=== PATIENT | female | born 1930 | race African-American/Black ===

== ENCOUNTER 2018-02-05 11:52 | Inpatient (IN) | payer MEDICARE, MEDICAID ==
--- NOTE | 2018-02-05 12:14 | ED Physician Chart ---
ED Chief Complaint/HPI - Patient Information Date Seen:: 02/05/18 Time Seen:: 12:00 Chief Complaint:: suprapubic lesion History of Present Illness:: Patient sent [place] [facility] facility for a suprapubic lesion which has been treated with Keflex for the last 1 week. It is uncertain when the lesion drained spontaneously. Historian:: Patient Review:: Nurse's Note Reviewed ED Review of Systems - Review of Systems General/Constitutional: No fever Skin: Skin lesions Head: No headache Eyes: No loss of vision ENT: No earache Neck: No neck pain Cardio Vascular: No chest pain, No palpitations Pulmonary: No SOB GI: No nausea, No vomiting, No diarrhea G/U: No dysuria Musculoskeletal: No bone or joint pain Endocrine: No polyuria, No polydipsia Psychiatric: Prior psych history Hematopoietic: No bruising Neurological: No syncope, No focal symptoms ED Past Medical History - Past Medical History Past Medical History: HTN, Dementia Family History: Other (not available) Social History: Care Facility Surgical History: other (not available) Psychiatricy History: Dementia Medication: Reviewed ED Physical Exam - Physical Examination General/Constitutional: Awake, Well-developed, well-nourished, Alert Head: Atraumatic Other Eyes comments:: Arcus senilis Skin: No rash Other Skin comments:: In the suprapubic area there is a 1 cm area of induration with a central 1 cm draining site ENMT: External ears, nose nl, Oropharynx nl Other ENMT comments:: Several teeth present lower more than upper Neck: No mass Respiratory: Nl effort/Exclusion, Clear to Auscultation Cardio Vascular: RRR GI: No tenderness/rebounding/guarding : No CVA tenderness Other Extremities comments:: 1 out of 4 pretibial pitting edema Neuro/Psych: No focal deficits ED Labs/Radiology/EKG Results - Lab Results Results: Laboratory Results - last 24 hr 02/05/18 02/05/18 02/05/18 12:25 12:25 12:25 WBC 5.9 RBC 4.24 Hgb 12.4 Hct 37.2 L MCV 87.8 MCH 29.2 MCHC Differential 33.3 RDW 13.4 Plt Count 318 MPV 7.1 Neutrophils % 59.6 Lymphocytes % 32.3 Monocytes % 5.6 Eosinophils % 2.3 Basophils % 0.2 PT 11.2 INR 1.08 PTT (Actin FS) 25.6 L Sodium 134 L Potassium 4.2 Chloride 102 Carbon Dioxide 23.5 Anion Gap 12.7 BUN 11 Creatinine 0.4 L Est GFR ( Amer) TNP Est GFR (Non-Af Amer) TNP BUN/Creatinine Ratio 27.5 Glucose 165 H Calcium 9.5 Troponin I 02/05/18 12:25 WBC RBC Hgb Hct MCV MCH MCHC Differential RDW Plt Count MPV Neutrophils % Lymphocytes % Monocytes % Eosinophils % Basophils % PT INR PTT (Actin FS) Sodium Potassium Chloride Carbon Dioxide Anion Gap BUN Creatinine Est GFR ( Amer) Est GFR (Non-Af Amer) BUN/Creatinine Ratio Glucose Calcium Troponin I < 0.01 L ED Assessment - Assessment General Assessment: Patient probably has an MRSA spontaneously partially drained suprapubic abscess ED Septic Shock - . Is Septic Shock (SBP<90, OR Lactate>4 mmol\L) present?: No ED Reassessment (Disposition) - Reassessment Reassessment Condition:: Unchanged - Diagnosis Diagnosis:: MRSA abscess; dementia - Patient Disposition Admitted to:: Med/Surg Spoke to:: Shekhar Sarkar Admitting Medical Physician:: Shekhar Sarkar Condition at Disposition:: Stable, Unchanged
[2018-02-05 12:39] LABS: % BASOPHILS 0.2 % (0.0-2.0); % EOSINOPHILS 2.3 % (0.0-5.0); % LYMPHOCYTES 32.3 % (20.0-50.0); % MONOCYTES 5.6 % (2.0-10.0); % NEUTROPHILS 59.6 % (40.0-80.0); EOSINOPHILE ABSOLUTE 0.1 Th/cmm (0.1-0.4); HEMATOCRIT 37.2 % (41.0-60); HEMOGLOBIN 12.4 gm/dL (12-16); LYMPHOCYTE ABSOLUTE 1.9 Th/cmm (1.5-3.0); MEAN CELL VOLUME 87.8 fl (81-100); MEAN CORPUSCULAR HEMOGLOBIN 29.2 pg (27.0-31.0); MEAN CORPUSCULAR HGB CONC 33.3 pg (28.0-36.0); MEAN PLATELET VOLUME 7.1 fl; MONOCYTE ABSOLUTE 0.3 Th/cmm (0.3-1.0); NEUTROPHILE ABSOLUTE 3.6 Th/cmm (1.8-8.0); PLATELET COUNT 318 Th/cmm (150-400); RED BLOOD COUNT 4.24 Mil/cmm (3.80-5.20); RED CELL DISTRIBUTION WIDTH 13.4 % (11.5-20.0); WHITE BLOOD COUNT 5.9 Th/cmm (4.8-10.8)
[2018-02-05 12:53] LABS: INR 1.08 (0.5-1.4); PROTHROMBIN TIME (TEST) 11.2 SECONDS (9.5-11.5)
[2018-02-05 12:56] LABS: ANION GAP 12.7 (7.0-16.0); BUN - UREA NITROGEN 11 mg/dL (7-25); CALCIUM SERUM 9.5 mg/dL (8.6-10.3); CARBON DIOXIDE 23.5 mEq/L (21.0-31.0); CHLORIDE 102 mEq/L (98-107); CREATININE - SERUM 0.4 mg/dL (0.6-1.2); GLUCOSE 165 mg/dL (70-105); POTASSIUM SERUM 4.2 mEq/L (3.5-5.1); SODIUM SERUM 134 mEq/L (136-145)
--- NOTE | 2018-02-05 16:11 | Consultation ---
Consult Note - Consult Note Service Date: 02/05/18 Referring Physician: Shekhar Sarkar Consult Note: PHYSICIAN Consultation Note: Date of Admission: 02/05/18 Purpose of Consultation: Chief Complaint: Patient CHATO WINCHESTER was admitted to [facility] with ABSCESS. History of Present Illness: 87 female with a past medical history of dementia hypertension sent from nursing facility for a draining wound in pubic area. On initial evaluation, her temperature was 98.5F and WBC count was 5900. She was found to have UTI and ID consult was called for further antibiotic management. Meanwhile, vancomycin and Zosyn were started. She has taken Keflex at nursing facility. Past Medical History: dementia hypertension. Allergies Allergy/AdvReac Type Severity Reaction Status Date / Time No Known Allergies Allergy Verified 02/05/18 12:18 Vital Signs Temp 97.9 F 02/05/18 12:44 Pulse 74 02/05/18 12:44 Resp 16 02/05/18 12:44 BP 124/70 02/05/18 12:44 Pulse Ox 98 02/05/18 12:44 Intake & Output 02/04/18 02/05/18 02/05/18 18:59 06:59 18:59 Weight (lbs) 70.307 kg Other: Weight Source Estimated Laboratory Results - last 24 hr 02/05/18 02/05/18 02/05/18 12:25 12:25 12:25 WBC 5.9 RBC 4.24 Hgb 12.4 Hct 37.2 L MCV 87.8 MCH 29.2 MCHC Differential 33.3 RDW 13.4 Plt Count 318 MPV 7.1 Neutrophils % 59.6 Lymphocytes % 32.3 Monocytes % 5.6 Eosinophils % 2.3 Basophils % 0.2 PT 11.2 INR 1.08 PTT (Actin FS) 25.6 L Sodium 134 L Potassium 4.2 Chloride 102 Carbon Dioxide 23.5 Anion Gap 12.7 BUN 11 Creatinine 0.4 L Est GFR ( Amer) TNP Est GFR (Non-Af Amer) TNP BUN/Creatinine Ratio 27.5 Glucose 165 H Calcium 9.5 Troponin I 02/05/18 12:25 WBC RBC Hgb Hct MCV MCH MCHC Differential RDW Plt Count MPV Neutrophils % Lymphocytes % Monocytes % Eosinophils % Basophils % PT INR PTT (Actin FS) Sodium Potassium Chloride Carbon Dioxide Anion Gap BUN Creatinine Est GFR ( Amer) Est GFR (Non-Af Amer) BUN/Creatinine Ratio Glucose Calcium Troponin I < 0.01 L Home Medication Medication Instructions Recorded Type Acetaminophen [Tylenol Extra 1,000 mg PO Q4HR PRN 02/05/18 History Strength] Acetaminophen [Tylenol] 650 mg PO Q4HR PRN 02/05/18 History Ascorbic Acid [Vitamin C] 500 mg PO DAILY 02/05/18 History Aspirin [Aspirin Chewable] 81 mg PO DAILY 02/05/18 History Bisacodyl [Dulcolax 10 Mg Supp] 10 mg RC PRN PRN 02/05/18 History Donepezil Hcl [Aricept] 10 mg PO DAILY 02/05/18 History Ferrous Sulfate 325 mg PO DAILY 02/05/18 History Fleet Enema 135 ml RC Q48H PRN 02/05/18 History Insulin Glargine,Hum.rec.anlog 15 unit SQ BID 02/05/18 History [Lantus Solostar] Levothyroxine Sodium 88 mcg PO DAILY 02/05/18 History Magnesium Hydroxide [Milk of 30 ml PO HS PRN 02/05/18 History Magnesia] Metformin HCl [Fortamet] 500 mg PO BID 02/05/18 History Neomycin/Bacitracin/Polymyxinb 1 appl TP DAILY 02/05/18 History [Triple Antibiotic Ointment] Review of Systems: A 12 point ROS was reviewed with the pertinent positive and negatives noted in the HPI. Social History Smoking Status Never smoker Physical Exam: General: Comfortable not in acute distress. HEENT: Head: Normocephalic, atraumatic. Oral cavity moist, pink tongue is is present icterus. Pupil PERRLA. Neck: Supple no JVD noted to be no use of accessory neck muscles Cardio: S1 and S2 within normal limits Respiratory: CTAP Abdominal: Soft, nontender nondistended bowel symptoms present. And pelvic area patient has small tiny wound draining serosanguineous fluid. Genital/Urinary: Deferred, as in abdomen Extremities: No cyanosis, no clubbing no edema. Neurological: Alert, awake and oriented 3. No focal deficit. Assessment: 1. Wound in pubic area. 2. Dementia. 3. Hypertension. Plan: Will change antibiotic to Rocephin. Wound care. Thank you, Dr. Sarkar for involving me taking care of this patient. Signed, Lagunas, Ford N., M.D. 02/05/[id number]
[2018-02-05 16:23] VITALS: BP 136/76
[2018-02-05] MEDS ORDERED: Fleet Enema 135 mL RC PRN (17:05)
[2018-02-05] MEDS ORDERED: Acetaminophen 500 MG TAB PO PRN (17:05)
[2018-02-05] MEDS ORDERED: Magnesium Hydroxide (MOM) 30 mL UDC PO PRN (17:05)
[2018-02-05] MEDS: D5-0.45NS 1,000 ML IV SCH (18:36)
[2018-02-06 05:48] LABS: % BASOPHILS 0.8 % (0.0-2.0); % EOSINOPHILS 3.1 % (0.0-5.0); % LYMPHOCYTES 28.4 % (20.0-50.0); % NEUTROPHILS 61.7 % (40.0-80.0); EOSINOPHILE ABSOLUTE 0.2 Th/cmm (0.1-0.4); HEMATOCRIT 35.9 % (41.0-60); LYMPHOCYTE ABSOLUTE 1.6 Th/cmm (1.5-3.0); MEAN CELL VOLUME 86.9 fl (81-100); MEAN CORPUSCULAR HGB CONC 33.3 pg (28.0-36.0); MEAN PLATELET VOLUME 7.7 fl; MONOCYTE ABSOLUTE 0.3 Th/cmm (0.3-1.0); NEUTROPHILE ABSOLUTE 3.4 Th/cmm (1.8-8.0); PLATELET COUNT 297 Th/cmm (150-400); RED BLOOD COUNT 4.13 Mil/cmm (3.80-5.20); RED CELL DISTRIBUTION WIDTH 13.2 % (11.5-20.0); WHITE BLOOD COUNT 5.5 Th/cmm (4.8-10.8)
[2018-02-06 06:07] LABS: ANION GAP 9.4 (7.0-16.0); BUN - UREA NITROGEN 9 mg/dL (7-25); CALCIUM SERUM 8.8 mg/dL (8.6-10.3); CARBON DIOXIDE 26.4 mEq/L (21.0-31.0); CHLORIDE 101 mEq/L (98-107); CHOLESTEROL 88 mg/dL (<200); CREATININE - SERUM 0.4 mg/dL (0.6-1.2); HDL -HIGH DENSITY LIPOPROTEIN 35 mg/dL (23-92); POTASSIUM SERUM 3.8 mEq/L (3.5-5.1); SODIUM SERUM 133 mEq/L (136-145); TRIGLYCERIDES 124 mg/dL (<150)
[2018-02-06 06:10] LABS: GLUCOSE 290 mg/dL (70-105)
[2018-02-06] MEDS: Insulin Detemir 100 units/mL 10mL Vial SUBQ SCH ×2 (08:41→17:14)
[2018-02-06] MEDS: Levothyroxine 0.088 Mg Tab PO SCH (08:42)
[2018-02-06] MEDS: Aspirin 81mg Chewable Tab PO SCH (08:42)
[2018-02-06] MEDS: Ferrous Sulfate 325 MG TAB PO SCH (08:42)
[2018-02-06] MEDS: D5-0.45NS 1,000 ML IV SCH (12:08)
[2018-02-06] MEDS ORDERED: INSULIN HUMAN REGULAR 100 UNITS/ML UNIT SUBQ ONE (13:08)
[2018-02-06] MEDS ORDERED: Triple Antibiotic Ointment 28gm tube TP SCH (16:00)
--- NOTE | 2018-02-06 16:44 | History & Physical ---
ADMIT DATE: 02/06/2018 CHIEF COMPLAINT: Suprapubic abscess. HISTORY OF PRESENT ILLNESS: This is an 87-year-old -[place] female who is a long term resident, admitted here to the med-surg unit due to suprapubic abscess. Apparently, the patient has been treated with Keflex and abscess has not resolved. The patient did not have any fevers at the long term. PAST MEDICAL HISTORY: Hypertension, dementia. FAMILY HISTORY: Noncontributory. SOCIAL HISTORY: The patient is a long term resident, requiring 24-hour nursing care. MEDICATIONS: Please see medication list. REVIEW OF SYSTEMS: Unable to obtain, patient is confused. PHYSICAL EXAMINATION: GENERAL: Elderly female, awake with confusion, no apparent distress. VITAL SIGNS: Temperature 97.4, heart rate 60, blood pressure 107/68, respiration 18, O2 98%. HEENT: Head; normocephalic, atraumatic. NECK: Supple. No mass. LUNGS: Clear bilaterally. ABDOMEN: Soft, nontender. LABORATORY DATA: WBC 5.5, H and H 12.0 and 35.9, platelets 297. Sodium 133, potassium 3.8, BUN 9, creatinine 0.4. ASSESSMENT: Suprapubic abscess, hypertension, dementia. PLAN: We will get Infectious Disease on the case for now, we will continue empiric IV antibiotics. We will follow up labs for tomorrow morning. We will continue to monitor this patient. [facility]# [id number]
[2018-02-06] MEDS: INSULIN ASPART SLIDING SCALE 100 UNITS/ML UNIT SUBQ SCH ×2 (17:15→21:11)
[2018-02-06 18:30] LABS: A1C % 8.2 % (4.0-6.0)
[2018-02-07 05:44] LABS: HEMATOCRIT 38.1 % (41.0-60); HEMOGLOBIN 12.2 gm/dL (12-16); MEAN CORPUSCULAR HEMOGLOBIN 28.6 pg (27.0-31.0); MEAN CORPUSCULAR HGB CONC 32.1 pg (28.0-36.0); MEAN PLATELET VOLUME 8.1 fl; PLATELET COUNT 248 Th/cmm (150-400); RED BLOOD COUNT 4.28 Mil/cmm (3.80-5.20); RED CELL DISTRIBUTION WIDTH 13.7 % (11.5-20.0)
[2018-02-07 06:07] LABS: ANION GAP 10.4 (7.0-16.0); BUN - UREA NITROGEN 8 mg/dL (7-25); CALCIUM SERUM 8.9 mg/dL (8.6-10.3); CARBON DIOXIDE 25.5 mEq/L (21.0-31.0); CHLORIDE 106 mEq/L (98-107); CREATININE - SERUM 0.5 mg/dL (0.6-1.2); POTASSIUM SERUM 4.9 mEq/L (3.5-5.1); SODIUM SERUM 137 mEq/L (136-145)
[2018-02-07 06:17] LABS: GLUCOSE 118 mg/dL (70-105)
[2018-02-07 06:22] LABS: WHITE BLOOD COUNT 8.8 Th/cmm (4.8-10.8)
[2018-02-07 06:32] LABS: BAND NEUTROPHILE 0 % (0-10); BASOPHIL 0 % (0-3); EOSINOPHIL 6 % (0-5); LYMPHOCYTE 32 % (20-50); MONOCYTE 1 % (2-10); NEUTROPHILS 61 % (40-80)
[2018-02-07] MEDS: INSULIN ASPART SLIDING SCALE 100 UNITS/ML UNIT SUBQ SCH ×4 (07:13→21:57)
[2018-02-07] MEDS: Levothyroxine 0.088 Mg Tab PO SCH (08:14)
[2018-02-07] MEDS: Aspirin 81mg Chewable Tab PO SCH (08:14)
[2018-02-07] MEDS: Insulin Detemir 100 units/mL 10mL Vial SUBQ SCH ×2 (08:14→16:58)
[2018-02-07] MEDS: Ferrous Sulfate 325 MG TAB PO SCH (08:14)
[2018-02-07] MEDS: D5-0.45NS 1,000 ML IV SCH (08:17)
--- NOTE | 2018-02-07 12:04 | General Progress Note ---
Subjective - Review of Systems Events since last encounter: patient awake c/o mild pain in abscess site tolerating antibiotics well Objective - Results Result Diagrams: 02/07/18 05:05 02/07/18 05:05 Recent Labs: Laboratory Last Values WBC 8.8 Th/cmm (4.8-10.8) D 02/07/18 05:05 RBC 4.28 Mil/cmm (3.80-5.20) 02/07/18 05:05 Hgb 12.2 gm/dL (12-16) 02/07/18 05:05 Hct 38.1 % (41.0-60) L 02/07/18 05:05 MCV 89.0 fl (81-100) 02/07/18 05:05 MCH 28.6 pg (27.0-31.0) 02/07/18 05:05 MCHC Differential 32.1 pg (28.0-36.0) 02/07/18 05:05 RDW 13.7 % (11.5-20.0) 02/07/18 05:05 Plt Count 248 Th/cmm (150-400) 02/07/18 05:05 MPV 8.1 fl 02/07/18 05:05 Add Manual Diff YES 02/07/18 05:05 Neutrophils % 61.7 % (40.0-80.0) 02/06/18 05:05 Band Neutrophils % 0 % (0-10) 02/07/18 05:05 Lymphocytes % 28.4 % (20.0-50.0) 02/06/18 05:05 Monocytes % 6.0 % (2.0-10.0) 02/06/18 05:05 Eosinophils % 3.1 % (0.0-5.0) 02/06/18 05:05 Basophils % 0.8 % (0.0-2.0) 02/06/18 05:05 Neutrophils (Manual) 61 % (40-80) 02/07/18 05:05 Lymphocytes 32 % (20-50) 02/07/18 05:05 Monocytes 1 % (2-10) L 02/07/18 05:05 Eosinophils 6 % (0-5) H 02/07/18 05:05 Basophils 0 % (0-3) 02/07/18 05:05 PT 11.2 SECONDS (9.5-11.5) 02/05/18 12:25 INR 1.08 (0.5-1.4) 02/05/18 12:25 PTT (Actin FS) 25.6 SECONDS (26.0-38.0) L 02/05/18 12:25 Sodium 137 mEq/L (136-145) 02/07/18 05:05 Potassium 4.9 mEq/L (3.5-5.1) 02/07/18 05:05 Chloride 106 mEq/L (98-107) 02/07/18 05:05 Carbon Dioxide 25.5 mEq/L (21.0-31.0) 02/07/18 05:05 Anion Gap 10.4 (7.0-16.0) 02/07/18 05:05 BUN 8 mg/dL (7-25) 02/07/18 05:05 Creatinine 0.5 mg/dL (0.6-1.2) L 02/07/18 05:05 Est GFR ( Amer) TNP 02/07/18 05:05 Est GFR (Non-Af Amer) TNP 02/07/18 05:05 BUN/Creatinine Ratio 16.0 02/07/18 05:05 Glucose 118 mg/dL (70-105) H D 02/07/18 05:05 POC Glucose 150 MG/DL (70 - 105) H 02/07/18 11:55 Hemoglobin A1c % 8.2 % (4.0-6.0) H 02/06/18 05:05 Calcium 8.9 mg/dL (8.6-10.3) 02/07/18 05:05 Troponin I < 0.01 ng/mL (0.01-0.05) L 02/05/18 12:25 Triglycerides 124 mg/dL (<150) 02/06/18 05:05 Cholesterol 88 mg/dL (<200) 02/06/18 05:05 LDL Cholesterol Direct 29 mg/dL (75-193) L 02/06/18 05:05 HDL Cholesterol 35 mg/dL (23-92) 02/06/18 05:05 Vancomycin Trough 7.9 ug/mL (5-10) 02/07/18 07:50 - Physical Exam Vitals and I&O: Vital Signs Temp 98.2 F 02/07/18 11:49 Pulse 60 02/07/18 11:49 Resp 18 02/07/18 11:49 BP 135/72 02/07/18 11:49 Pulse Ox 96 02/07/18 11:49 Intake & Output 02/06/18 02/07/18 02/07/18 18:59 06:59 18:59 Intake Total 1726.506 625 5500 Balance 1726.400 828 1632 Weight (lbs) 65.317 kg 65.317 kg Intake: Intake, IV Amount 1226.520 00 7412 D5-0.45NS 1,000 ml @ 50 576.307 1249 mls/hr IV .Q20H [facility] Rx#: [id number] Piperacillin Sodium/ 100 50 Tazobact 3.375 gm In Sodium Chloride 0.9% 50 ml @ 100 mls/hr IV Q6HR [facility] Rx#:[id number] Vancomycin HCl 1 gm In 250 Sodium Chloride 0.9% 250 ml @ 165 mls/hr IV Q24HR@ 0900 [facility] Rx#:[id number] Oral 500 400 Other: # Voids 3 2 # Bowel Movements 0 0 Stool Characteristics Soft Weight Source Bedscale Bedscale Active Medications: Current Medications Acetaminophen (Tylenol) 650 mg PO Q4HR PRN PRN Reason: MILD PAIN OR TEMP >101 Stop: 04/06/18 17:04 Acetaminophen (Tylenol Extra Strength) 1,000 mg PO Q4HR PRN PRN Reason: MODERATE PAIN Stop: 04/06/18 17:04 Ascorbic Acid (Vitamin C) 500 mg PO DAILY [facility] Stop: 04/07/18 08:59 Last Admin: 02/07/18 08:14 Dose: 500 mg Aspirin (Aspirin Chewable) 81 mg PO DAILY [facility] Stop: 04/07/18 08:59 Last Admin: 02/07/18 08:14 Dose: 81 mg Bisacodyl (Dulcolax 10 Mg Supp) 10 mg RC DAILY PRN PRN Reason: IF MOM INEFFECTIVE Stop: 04/06/18 17:04 Donepezil HCl (Aricept) 10 mg PO DAILY [facility] Stop: 04/07/18 08:59 Last Admin: 02/07/18 08:14 Dose: 10 mg Ferrous Sulfate (Iron) 325 mg PO DAILY [facility] Stop: 04/07/18 08:59 Last Admin: 02/07/18 08:14 Dose: 325 mg Dextrose/Sodium Chloride (D5-0.45ns) 1,000 mls @ 50 mls/hr IV .Q20H [facility] Stop: 04/06/18 16:14 Last Admin: 02/07/18 08:17 Dose: 50 mls/hr Piperacillin Sod/Tazobactam (Sod 3.375 gm/ Sodium Chloride) 50 mls @ 100 mls/ hr IV Q6HR [facility] Stop: 04/06/18 17:59 Last Admin: 02/07/18 05:20 Dose: 100 mls/hr Vancomycin HCl 1 gm/ Sodium (Chloride) 250 mls @ 165 mls/hr IV Q24HR@0900 [facility] Stop: 04/06/18 16:59 Last Admin: 02/07/18 09:30 Dose: 165 mls/hr Insulin Aspart (Novolog Insulin Sliding Scale) 0 units SUBQ ACHS [facility]; Protocol Stop: 04/07/18 16:29 Last Admin: 02/07/18 11:59 Dose: Not Given Insulin Detemir (Levemir Insulin) 15 units SUBQ BID [facility] Stop: 04/07/18 08:59 Last Admin: 02/07/18 08:14 Dose: 15 units Levothyroxine Sodium (Synthroid) 0.088 mg PO DAILY [facility] Stop: 04/07/18 08:59 Last Admin: 02/07/18 08:14 Dose: 0.088 mg Magnesium Hydroxide (Milk Of Magnesia) 30 ml PO HS PRN PRN Reason: Constipation Stop: 04/06/18 17:04 Metformin HCl (Glucophage) 500 mg PO BID [facility] Stop: 04/07/18 08:59 Last Admin: 02/07/18 08:14 Dose: 500 mg Miscellaneous (Vancomycin Iv Per Pharmacy) 1 ea MC PRN PRN PRN Reason: PROTOCOL Stop: 04/06/18 16:13 Neomycin/Polymyxin/Bacitracin (Triple Antibiotic Pkt) 1 pkt TP DAILY [facility] Stop: 04/07/18 11:59 Sodium Phosphate (Fleet Enema) 135 ml RC Q48H PRN PRN Reason: IF DULCOLAX INEFFECTIVE Stop: 04/06/18 17:04 Assessment/Plan - Problem List Patient Problems: All Active Problems FESTERING LESION TO GROIN (Acute)
--- NOTE | 2018-02-07 12:14 | Infectious Disease Prog Note ---
Infectious Disease Subjective - Review of Systems Service Date: 02/07/18 Subjective: There is no new change, no fever. Infectious Disease Objective - Results Result Diagrams: 02/07/18 05:05 02/07/18 05:05 Recent Labs: Laboratory Last Values WBC 8.8 Th/cmm (4.8-10.8) D 02/07/18 05:05 RBC 4.28 Mil/cmm (3.80-5.20) 02/07/18 05:05 Hgb 12.2 gm/dL (12-16) 02/07/18 05:05 Hct 38.1 % (41.0-60) L 02/07/18 05:05 MCV 89.0 fl (81-100) 02/07/18 05:05 MCH 28.6 pg (27.0-31.0) 02/07/18 05:05 MCHC Differential 32.1 pg (28.0-36.0) 02/07/18 05:05 RDW 13.7 % (11.5-20.0) 02/07/18 05:05 Plt Count 248 Th/cmm (150-400) 02/07/18 05:05 MPV 8.1 fl 02/07/18 05:05 Add Manual Diff YES 02/07/18 05:05 Neutrophils % 61.7 % (40.0-80.0) 02/06/18 05:05 Band Neutrophils % 0 % (0-10) 02/07/18 05:05 Lymphocytes % 28.4 % (20.0-50.0) 02/06/18 05:05 Monocytes % 6.0 % (2.0-10.0) 02/06/18 05:05 Eosinophils % 3.1 % (0.0-5.0) 02/06/18 05:05 Basophils % 0.8 % (0.0-2.0) 02/06/18 05:05 Neutrophils (Manual) 61 % (40-80) 02/07/18 05:05 Lymphocytes 32 % (20-50) 02/07/18 05:05 Monocytes 1 % (2-10) L 02/07/18 05:05 Eosinophils 6 % (0-5) H 02/07/18 05:05 Basophils 0 % (0-3) 02/07/18 05:05 PT 11.2 SECONDS (9.5-11.5) 02/05/18 12:25 INR 1.08 (0.5-1.4) 02/05/18 12:25 PTT (Actin FS) 25.6 SECONDS (26.0-38.0) L 02/05/18 12:25 Sodium 137 mEq/L (136-145) 02/07/18 05:05 Potassium 4.9 mEq/L (3.5-5.1) 02/07/18 05:05 Chloride 106 mEq/L (98-107) 02/07/18 05:05 Carbon Dioxide 25.5 mEq/L (21.0-31.0) 02/07/18 05:05 Anion Gap 10.4 (7.0-16.0) 02/07/18 05:05 BUN 8 mg/dL (7-25) 02/07/18 05:05 Creatinine 0.5 mg/dL (0.6-1.2) L 02/07/18 05:05 Est GFR ( Amer) TNP 02/07/18 05:05 Est GFR (Non-Af Amer) TNP 02/07/18 05:05 BUN/Creatinine Ratio 16.0 02/07/18 05:05 Glucose 118 mg/dL (70-105) H D 02/07/18 05:05 POC Glucose 150 MG/DL (70 - 105) H 02/07/18 11:55 Hemoglobin A1c % 8.2 % (4.0-6.0) H 02/06/18 05:05 Calcium 8.9 mg/dL (8.6-10.3) 02/07/18 05:05 Troponin I < 0.01 ng/mL (0.01-0.05) L 02/05/18 12:25 Triglycerides 124 mg/dL (<150) 02/06/18 05:05 Cholesterol 88 mg/dL (<200) 02/06/18 05:05 LDL Cholesterol Direct 29 mg/dL (75-193) L 02/06/18 05:05 HDL Cholesterol 35 mg/dL (23-92) 02/06/18 05:05 Vancomycin Trough 7.9 ug/mL (5-10) 02/07/18 07:50 - Physical Exam Vitals and I&O: Vital Signs Temp 98.2 F 02/07/18 11:49 Pulse 60 02/07/18 11:49 Resp 18 02/07/18 11:49 BP 135/72 02/07/18 11:49 Pulse Ox 96 02/07/18 11:49 Intake & Output 02/06/18 02/07/18 02/07/18 18:59 06:59 18:59 Intake Total 1726.120 091 5342 Balance 1726.935 258 1846 Weight (lbs) 65.317 kg 65.317 kg Intake: Intake, IV Amount 1226.263 959 9504 D5-0.45NS 1,000 ml @ 50 488.913 6075 mls/hr IV .Q20H [facility] Rx#: [id number] Piperacillin Sodium/ 100 100 Tazobact 3.375 gm In Sodium Chloride 0.9% 50 ml @ 100 mls/hr IV Q6HR [facility] Rx#:[id number] Vancomycin HCl 1 gm In 250 Sodium Chloride 0.9% 250 ml @ 165 mls/hr IV Q24HR@ 0900 [facility] Rx#:[id number] Oral 500 400 Other: # Voids 3 2 # Bowel Movements 0 0 Stool Characteristics Soft Weight Source Bedscale Bedscale Active Medications: Current Medications Acetaminophen (Tylenol) 650 mg PO Q4HR PRN PRN Reason: MILD PAIN OR TEMP >101 Stop: 04/06/18 17:04 Acetaminophen (Tylenol Extra Strength) 1,000 mg PO Q4HR PRN PRN Reason: MODERATE PAIN Stop: 04/06/18 17:04 Ascorbic Acid (Vitamin C) 500 mg PO DAILY [facility] Stop: 04/07/18 08:59 Last Admin: 02/07/18 08:14 Dose: 500 mg Aspirin (Aspirin Chewable) 81 mg PO DAILY [facility] Stop: 04/07/18 08:59 Last Admin: 02/07/18 08:14 Dose: 81 mg Bisacodyl (Dulcolax 10 Mg Supp) 10 mg RC DAILY PRN PRN Reason: IF MOM INEFFECTIVE Stop: 04/06/18 17:04 Donepezil HCl (Aricept) 10 mg PO DAILY [facility] Stop: 04/07/18 08:59 Last Admin: 02/07/18 08:14 Dose: 10 mg Ferrous Sulfate (Iron) 325 mg PO DAILY [facility] Stop: 04/07/18 08:59 Last Admin: 02/07/18 08:14 Dose: 325 mg Dextrose/Sodium Chloride (D5-0.45ns) 1,000 mls @ 50 mls/hr IV .Q20H [facility] Stop: 04/06/18 16:14 Last Admin: 02/07/18 08:17 Dose: 50 mls/hr Piperacillin Sod/Tazobactam (Sod 3.375 gm/ Sodium Chloride) 50 mls @ 100 mls/ hr IV Q6HR [facility] Stop: 04/06/18 17:59 Last Admin: 02/07/18 12:04 Dose: 100 mls/hr Vancomycin HCl 1 gm/ Sodium (Chloride) 250 mls @ 165 mls/hr IV Q24HR@0900 [facility] Stop: 04/06/18 16:59 Last Admin: 02/07/18 09:30 Dose: 165 mls/hr Insulin Aspart (Novolog Insulin Sliding Scale) 0 units SUBQ ACHS [facility]; Protocol Stop: 04/07/18 16:29 Last Admin: 02/07/18 11:59 Dose: Not Given Insulin Detemir (Levemir Insulin) 15 units SUBQ BID [facility] Stop: 04/07/18 08:59 Last Admin: 02/07/18 08:14 Dose: 15 units Levothyroxine Sodium (Synthroid) 0.088 mg PO DAILY [facility] Stop: 04/07/18 08:59 Last Admin: 02/07/18 08:14 Dose: 0.088 mg Magnesium Hydroxide (Milk Of Magnesia) 30 ml PO HS PRN PRN Reason: Constipation Stop: 04/06/18 17:04 Metformin HCl (Glucophage) 500 mg PO BID [facility] Stop: 04/07/18 08:59 Last Admin: 02/07/18 08:14 Dose: 500 mg Miscellaneous (Vancomycin Iv Per Pharmacy) 1 ea [facility] PRN PRN PRN Reason: PROTOCOL Stop: 04/06/18 16:13 Neomycin/Polymyxin/Bacitracin (Triple Antibiotic Pkt) 1 pkt TP DAILY [facility] Stop: 04/07/18 11:59 Sodium Phosphate (Fleet Enema) 135 ml RC Q48H PRN PRN Reason: IF DULCOLAX INEFFECTIVE Stop: 04/06/18 17:04 General: no acute distress, well developed, well nourished HEENT: atraumatic, normocephalic, PERRLA, EOMI Neck: supple, no thyromegaly Cardiovascular: S1S2, regular Lungs: clear to auscultation bilaterally, clear to percussion Abdomen: soft, other (small wound in pubic), no tender, no distended, no mass, no rebound, no hepatomegaly, no splenomegaly, no ascites Extremities: no cyanosis, no clubbing, no edema Neurological: awake, alert, oriented Skin: intact Infectious Disease Assmt/Plan - Problem List Patient Problems: All Active Problems FESTERING LESION TO GROIN (Acute) - Assessment Assessment: 1. Wound in pubic area. 2. Dementia. 3. Hypertension. - Plan Plan: wound care, may dc SNF off antibiotics. Dw case management.
[2018-02-07] MEDS: Triple Antibiotic 0.94 gm Pkt TP SCH (12:49)
[2018-02-08] MEDS: INSULIN ASPART SLIDING SCALE 100 UNITS/ML UNIT SUBQ SCH (08:09)
[2018-02-08] MEDS: Insulin Detemir 100 units/mL 10mL Vial SUBQ SCH (08:23)
[2018-02-08] MEDS: Levothyroxine 0.088 Mg Tab PO SCH (10:29)
[2018-02-08] MEDS: Aspirin 81mg Chewable Tab PO SCH (10:30)
[2018-02-08] MEDS: Triple Antibiotic 0.94 gm Pkt TP SCH (10:30)
[2018-02-08] MEDS: Ferrous Sulfate 325 MG TAB PO SCH (10:30)
--- NOTE | 2018-03-06 22:26 | Discharge Summary ---
DATE OF DISCHARGE: 02/08/2018 HOSPITAL COURSE: The patient was admitted on 02/05/2018 at [facility]. The patient was sent back to [place] on 02/08/2018. The patient had an infection in the suprapubic area that was evaluated in the ER, and admitted for possible suprapubic catheter. History of hypertension, history of dementia. The patient had a surgical consult by Dr. Grant. The patient also had an infectious disease consult with Dr. Ford Lagunas. The patient got antibiotics and the abscessed was cleaned. The patient was treated with Keflex. The patient was stable for discharge on 02/08 and was discharged back to [place] in stable condition. MEDICATIONS: See the reconciliation sheet. ____ and I will follow the patient. JOB# [id number]
== END 2018-02-08 12:10 | DRG 757 ==
LOC: ER 11:52 → MSI 14:10
PROVIDERS: ADMIT Internal Medicine; ATTEND Internal Medicine
DX: N73.9 Female pelvic inflammatory disease, unspecified (principal); E11.00 Type 2 diabetes mellitus with hyperosmolarity without nonketotic hyperglycemic-hyperosmolar coma (NKHHC); N39.0 Urinary tract infection, site not specified; F03.90 Unspecified dementia, unspecified severity, without behavioral disturbance, psychotic disturbance, mood disturbance, and anxiety; I10 Essential (primary) hypertension; B95.62 Methicillin resistant Staphylococcus aureus infection as the cause of diseases classified elsewhere; Z79.82 Long term (current) use of aspirin; Z79.899 Other long term (current) drug therapy
CPT/HCPCS: 36415-UA; 80048-TC; 80061-TC; 80202-TC; 82948-90; 83036-90; 84484-TC; 85007-TC; 85025-TC; 85610-TC; 85730-TC; 87070-90; J1815; J2543; J3370; Z7610

== ENCOUNTER 2018-03-14 14:07 | Inpatient (IN) | payer MEDICARE, MEDICAID ==
[2018-03-14] MEDS ORDERED: Sodium Chloride 0.9% 1,000 ML IV ONE (14:50)
--- NOTE | 2018-03-14 14:52 | ED Physician Chart ---
ED Chief Complaint/HPI - Patient Information Date Seen:: 03/14/18 Time Seen:: 14:50 Chief Complaint:: Weakness History of Present Illness:: onset x 3 days of weakness, poor oral intake, and failure to thrive; no report of trauma, H/As, S/T, neck pain, C/P, SOB, Abd. Pain, A/N/V/D/C, fever, chills, or urinary s/s Allergies:: Allergies Allergy/AdvReac Type Severity Reaction Status Date / Time No Known Allergies Allergy Verified 03/14/18 14:45 Historian:: Patient, EMS Review:: Nurse's Note Reviewed, Old Chart Reviewed, EMS run form Reviewed ED Review of Systems - Review of Systems General/Constitutional: Fever, No chills, No weight loss, Weakness, No diaphoresis, No edema, No loss of appetite Skin: No skin lesions, No rash, No bruising Head: No headache, No light-headedness Eyes: No loss of vision, No pain, No diplopia ENT: No earache, No nasal drainage, No sore throat, No tinnitus Neck: No neck pain, No swelling, No thyromegaly, No stiffness, No mass noted Cardio Vascular: No chest pain, No palpitations, No PND, No orthopnea, No edema Pulmonary: No SOB, No cough, No sputum, No wheezing GI: No nausea, No vomiting, No diarrhea, No pain, No melena, No hematochezia, No constipation, No hematemesis G/U: No dysuria, No frequency, No hematuria, No nacturia Library Services Coordinator: No vaginal discharge, No abnormal vaginal bleed, No contraction Musculoskeletal: No bone or joint pain, No back pain, No muscle pain Endocrine: No polyuria, No polydipsia Psychiatric: No prior psych history, No depression, No anxiety, No suicidal ideation, No homicidal ideation, No auditory hallucination, No visual hallucination Hematopoietic: No bruising, No lymphadenopathy Allergic/Immuno: No urticaria, No angioedema Neurological: No syncope, No focal symptoms, Weakness, No paresthesia, No headache, No seizure, No dizziness, Confusion, No vertigo ED Past Medical History - Past Medical History Obtainable: Yes Past Medical History: HTN, DM, Thyroid disorder, Arthritis, Dementia Family History: Diabetes Melitus, HTN Social History: Non Smoker, No Alcohol, No Drug Use, , Care Facility Surgical History: None Psychiatricy History: Dementia Medication: Reviewed Family Medical History - Family Member Mother History Unknown: Yes ED Physical Exam - Physical Examination General/Constitutional: Awake, Well-developed, well-nourished, Alert, No distress, GCS 15, Non-toxic appearing, Ambulatory Head: Atraumatic Eyes: Lids, conjuctiva normal, PERRL, EOMI Skin: Nl inspection, No rash, No skin lesions, No ecchymosis, Well hydrated, No lymphadenopathy ENMT: External ears, nose nl, TM canals nl, Nasal exam nl, Lips, teeth, gums nl , Oropharynx nl, Tonsils nl Neck: Nontender, Full ROM w/o pain, No JVD, No nuchal rigidity, No bruit, No mass, No stridor Respiratory: Nl effort/Exclusion, Clear to Auscultation, No Wheeze/Rhonchi/Rales Cardio Vascular: RRR, No murmur, gallop, rubs, NL S1 S2, Carotid/Femoral/Distal pulses equal bilaterally GI: No tenderness/rebounding/guarding, No organomegaly, No hernia, Normal BS's, Nondistended, No mass/bruits, No McBurney tenderness, Rectum exam nl Other GI comments:: no pulsatile masses : No CVA tenderness Extremities: No tenderness or effusion, Full ROM, normal strength in all extremities, No edema, Normal digits & nails Neuro/Psych: Alert/oriented, DTR's symmetric, Normal sensory exam, Normal motor strength, Judgement/insight normal, Mood normal, Normal gait, No focal deficits Misc: Normal back, No paraspinal tenderness ED Labs/Radiology/EKG Results - Lab Results Comments:: Reviewed - Radiology Results Comments:: CXR: CM; NAD - EKG Interpretations EKG Time:: 14:55 Rate & Rhythm: 63; NSR Comments:: non-specific st-t changes ED Septic Shock - . Is Septic Shock (SBP<90, OR Lactate>4 mmol\L) present?: No ED Reassessment (Disposition) - Reassessment Reassessment Condition:: Improved - Diagnosis Diagnosis:: Weakness; Lactic Acidosis; Failure to Thrive; Poor Oral Intake; Sepsis; UTI - Aftercare/Follow up Instructions Aftercare/Follow-Up Instructions:: Counseled pt regarding lab results/diagnosis & need follow up, Counseled pt & family regarding lab results/diagnosis & need follow up - Patient Disposition Discharge/Transfer:: Acute Care w/in this hosp Accepting Physician:: Dr. Sarkar Time Called:: [id number] Time Responded:: 16:45 Admitted to:: Med/Surg Spoke to:: Dr. Sarkar Admitting Medical Physician:: Dr. Sarkar Condition at Disposition:: Stable, Improved
[2018-03-14 15:32] LABS: % EOSINOPHILS 3.5 % (0.0-5.0); % LYMPHOCYTES 35.9 % (20.0-50.0); % MONOCYTES 6.4 % (2.0-10.0); % NEUTROPHILS 53.2 % (40.0-80.0); BASOPHILE ABSOLUTE 0.1 Th/cumm (0-0.2); EOSINOPHILE ABSOLUTE 0.2 Th/cmm (0.1-0.4); HEMATOCRIT 37.8 % (41.0-60); HEMOGLOBIN 12.3 gm/dL (12-16); MEAN CELL VOLUME 89.8 fl (81-100); MEAN CORPUSCULAR HEMOGLOBIN 29.2 pg (27.0-31.0); MEAN CORPUSCULAR HGB CONC 32.5 pg (28.0-36.0); MEAN PLATELET VOLUME 7.4 fl; MONOCYTE ABSOLUTE 0.4 Th/cmm (0.3-1.0); NEUTROPHILE ABSOLUTE 2.9 Th/cmm (1.8-8.0); PLATELET COUNT 349 Th/cmm (150-400); RED BLOOD COUNT 4.21 Mil/cmm (3.80-5.20); RED CELL DISTRIBUTION WIDTH 14.6 % (11.5-20.0); WHITE BLOOD COUNT 5.6 Th/cmm (4.8-10.8)
[2018-03-14 15:44] LABS: ALBUMIN 3.4 gm/dL (3.7-5.3); ALKALINE PHOSPHATASE 69 U/L (34-104); AMYLASE SERUM 20 U/L (29-103); ANION GAP 13.9 (7.0-16.0); BILIRUBIN,TOTAL 0.4 mg/dL (0.3-1.0); BUN - UREA NITROGEN 9 mg/dL (7-25); CALCIUM SERUM 9.6 mg/dL (8.6-10.3); CARBON DIOXIDE 24.5 mEq/L (21.0-31.0); CHLORIDE 102 mEq/L (98-107); CREATININE - SERUM 0.5 mg/dL (0.6-1.2); CREATININE KINASE 28 U/L (30-223); GLUCOSE 178 mg/dL (70-105); LIPASE 18 U/L (11-82); POTASSIUM SERUM 4.4 mEq/L (3.5-5.1); SGOT 14 U/L (13-39); SGPT/ALT 13 U/L (7-52); SODIUM SERUM 136 mEq/L (136-145); TOTAL PROTEIN,SERUM 6.7 gm/dL (6.0-8.3)
[2018-03-14 15:50] LABS: INR 0.99 (0.5-1.4); PROTHROMBIN TIME (TEST) 10.3 SECONDS (9.5-11.5)
[2018-03-14 15:57] LABS: TROP I < 0.01 ng/mL (0.01-0.05)
[2018-03-14 17:18] LABS: URINE SOURCE MIDSTREAM
[2018-03-14 17:20] LABS: URINE BILIRUBIN NEGATIVE (NEGATIVE); URINE BLOOD NEGATIVE (NEGATIVE); URINE GLUCOSE (UA) 500 mg/dL (NEGATIVE); URINE KETONE NEGATIVE (NEGATIVE); URINE LEUKOCYTE ESTERASE NEGATIVE (NEGATIVE); URINE MICROSCOPIC INDICATED? YES; URINE NITRATE NEGATIVE (NEGATIVE); URINE PROTEIN NEGATIVE (NEGATIVE); URINE UROBILINOGEN 0.2 E.U./dL (0.2 - 1.0)
[2018-03-14 17:21] LABS: URINE CLARITY CLEAR (CLEAR); URINE COLOR YELLOW
[2018-03-14 17:35] LABS: URINE BACTERIA OCCASIONAL /hpf (NONE SEEN); URINE EPITHELIAL CELLS FEW /lpf (FEW); URINE RBC 0-2 /hpf (0-5)
[2018-03-14] MEDS ORDERED: cefTRIAXone 1 GM in Sodium Chloride 0.9% 50 ML IV ONE (17:42)
[2018-03-14 19:58] VITALS: BP 115/66
[2018-03-14] MEDS ORDERED: Fleet Enema 135 mL RC PRN (21:09)
[2018-03-14] MEDS ORDERED: Acetaminophen 500 MG TAB PO PRN (21:09)
[2018-03-14] MEDS ORDERED: Magnesium Hydroxide (MOM) 30 mL UDC PO PRN (21:09)
[2018-03-14] MEDS ORDERED: Piperacillin Sodium/Tazobact 3.375 gm Vial IV ONE (22:06)
[2018-03-14] MEDS: D5-0.9%NS 1,000 ML IV SCH (22:22)
[2018-03-14] MEDS: INSULIN ASPART SLIDING SCALE 100 UNITS/ML UNIT SUBQ SCH (22:26)
[2018-03-15] MEDS ORDERED: Piperacillin Sodium/Tazobact 3.375 gm Vial IV ONE (02:29)
[2018-03-15] MEDS: Levothyroxine 0.088 Mg Tab PO SCH (06:44)
[2018-03-15] MEDS: Ferrous Sulfate 325 MG TAB PO SCH (06:45)
[2018-03-15] MEDS ORDERED: INSULIN ASPART SLIDING SCALE 100 UNITS/ML UNIT SUBQ SCH (07:30)
[2018-03-15] MEDS: INSULIN ASPART SLIDING SCALE 100 UNITS/ML UNIT SUBQ SCH ×4 (08:02→20:22)
[2018-03-15] MEDS: Insulin Detemir 100 units/mL 10mL Vial SUBQ SCH ×2 (08:02→17:14)
[2018-03-15] MEDS: Aspirin 81mg Chewable Tab PO SCH (08:16)
--- NOTE | 2018-03-15 08:18 | Diagnostic Imaging Report ---
Portable chest x-ray HISTORY: Shortness of breath No acute focal pulmonary processes. No hilar or mediastinal abnormalities. Heart size difficult to assess with portable technique and a poor inspiration. Degenerative changes noted throughout the spine. IMPRESSION: No acute abnormalities
[2018-03-15 12:33] LABS: BASOPHILE ABSOLUTE 0.3 Th/cumm (0-0.2); EOSINOPHILE ABSOLUTE 0.1 Th/cmm (0.1-0.4); HEMOGLOBIN 11.4 gm/dL (12-16); LYMPHOCYTE ABSOLUTE 1.1 Th/cmm (1.5-3.0); MEAN CELL VOLUME 89.5 fl (81-100); MEAN CORPUSCULAR HEMOGLOBIN 29.1 pg (27.0-31.0); MEAN CORPUSCULAR HGB CONC 32.5 pg (28.0-36.0); MEAN PLATELET VOLUME 6.9 fl; MONOCYTE ABSOLUTE 0.2 Th/cmm (0.3-1.0); NEUTROPHILE ABSOLUTE 4.5 Th/cmm (1.8-8.0); PLATELET COUNT 324 Th/cmm (150-400); RED CELL DISTRIBUTION WIDTH 14.5 % (11.5-20.0); WHITE BLOOD COUNT 6.2 Th/cmm (4.8-10.8)
[2018-03-15 12:53] LABS: BAND NEUTROPHILE 1 % (0-10); BASOPHIL 3 % (0-3); EOSINOPHIL 1 % (0-5); LYMPHOCYTE 19 % (20-50); MONOCYTE 6 % (2-10); NEUTROPHILS 70 % (40-80)
[2018-03-15 12:54] LABS: PLATELET ESTIMATE ADEQUATE (NORMAL)
[2018-03-15 12:57] LABS: ALKALINE PHOSPHATASE 80 U/L (34-104); ANION GAP 10.4 (7.0-16.0); BILIRUBIN,TOTAL 0.4 mg/dL (0.3-1.0); BUN - UREA NITROGEN 13 mg/dL (7-25); CARBON DIOXIDE 25.9 mEq/L (21.0-31.0); CHLORIDE 103 mEq/L (98-107); CHOLESTEROL 93 mg/dL (<200); CREATININE - SERUM 0.5 mg/dL (0.6-1.2); GLUCOSE 227 mg/dL (70-105); HDL -HIGH DENSITY LIPOPROTEIN 39 mg/dL (23-92); POTASSIUM SERUM 4.3 mEq/L (3.5-5.1); SGOT 53 U/L (13-39); SGPT/ALT 38 U/L (7-52); SODIUM SERUM 135 mEq/L (136-145); TOTAL PROTEIN,SERUM 6.1 gm/dL (6.0-8.3); TRIGLYCERIDES 148 mg/dL (<150)
--- NOTE | 2018-03-15 13:52 | History & Physical ---
ADMIT DATE: 03/14/2018 HISTORY OF PRESENT ILLNESS: The patient is well known to me from [facility]. The patient had 3-day onset of the severe weakness, poor intake, and failure to thrive. The patient was brought to the Emergency Room. The patient had no urinary symptoms. The patient was seen in the Emergency Room. REVIEW OF SYSTEMS: Otherwise, negative. PAST MEDICAL HISTORY: Including hypertension, diabetes or thyroid disorder, arthritis, dementia. PHYSICAL EXAMINATION: GENERAL: The patient is awake, alert. HEAD: Normal. ENT: Normal. NECK: Supple, nontender. LUNGS: Clear. CARDIOVASCULAR SYSTEM: S1, S2 heard. ABDOMEN: Soft. Bowel sounds are heard. LABORATORY DATA: The patient had a chest x-ray showed cardiomegaly. EKG showed sinus bradycardia. The patient's lactic acid was very high. The patient's urine showed evidence of infection. DIAGNOSES: Urinary tract infection, sepsis, poor oral intake, failure to thrive, lactic acidosis, severe weakness, history of hypertension, history of diabetes, history of thyroid disorder, arthritis, dementia. PLAN: The patient is being admitted. I will go ahead and give IV antibiotic, have Dr. Baltazar Lagunas see the patient. I will also have the psych doctor, Dr. Eldridge, see the patient and I will follow the patient. JOB# [id number]
[2018-03-15] MEDS: D5-0.9%NS 1,000 ML IV SCH (20:21)
[2018-03-16] MEDS: D5-0.9%NS 1,000 ML IV SCH (05:06)
[2018-03-16 05:40] LABS: % EOSINOPHILS 2.5 % (0.0-5.0); % LYMPHOCYTES 34.2 % (20.0-50.0); % NEUTROPHILS 58.3 % (40.0-80.0); EOSINOPHILE ABSOLUTE 0.2 Th/cmm (0.1-0.4); HEMATOCRIT 34.8 % (41.0-60); HEMOGLOBIN 11.4 gm/dL (12-16); LYMPHOCYTE ABSOLUTE 2.1 Th/cmm (1.5-3.0); MEAN CELL VOLUME 89.4 fl (81-100); MEAN CORPUSCULAR HEMOGLOBIN 29.3 pg (27.0-31.0); MEAN CORPUSCULAR HGB CONC 32.8 pg (28.0-36.0); MEAN PLATELET VOLUME 7.5 fl; MONOCYTE ABSOLUTE 0.3 Th/cmm (0.3-1.0); NEUTROPHILE ABSOLUTE 3.5 Th/cmm (1.8-8.0); PLATELET COUNT 314 Th/cmm (150-400); RED BLOOD COUNT 3.89 Mil/cmm (3.80-5.20); RED CELL DISTRIBUTION WIDTH 15.3 % (11.5-20.0); WHITE BLOOD COUNT 6.1 Th/cmm (4.8-10.8)
[2018-03-16 05:58] LABS: ALBUMIN 3.1 gm/dL (3.7-5.3); ALKALINE PHOSPHATASE 66 U/L (34-104); BILIRUBIN,TOTAL 0.3 mg/dL (0.3-1.0); BUN - UREA NITROGEN 11 mg/dL (7-25); CARBON DIOXIDE 27.1 mEq/L (21.0-31.0); CHLORIDE 108 mEq/L (98-107); CREATININE - SERUM 0.5 mg/dL (0.6-1.2); POTASSIUM SERUM 4.1 mEq/L (3.5-5.1); SGOT 26 U/L (13-39); SGPT/ALT 34 U/L (7-52); SODIUM SERUM 140 mEq/L (136-145); TOTAL PROTEIN,SERUM 6.1 gm/dL (6.0-8.3)
[2018-03-16 06:00] LABS: GLUCOSE 66 mg/dL (70-105)
[2018-03-16] MEDS ORDERED: Dextrose 50% 50 mL Abboject IVP ONE ×2 (06:08→06:15)
[2018-03-16] MEDS: Levothyroxine 0.088 Mg Tab PO SCH (06:57)
[2018-03-16] MEDS: Ferrous Sulfate 325 MG TAB PO SCH (06:57)
[2018-03-16] MEDS: INSULIN ASPART SLIDING SCALE 100 UNITS/ML UNIT SUBQ SCH ×4 (06:58→21:00)
[2018-03-16] MEDS: Aspirin 81mg Chewable Tab PO SCH (08:21)
[2018-03-16] MEDS: Insulin Detemir 100 units/mL 10mL Vial SUBQ SCH ×2 (11:22→17:46)
--- NOTE | 2018-03-16 18:05 | Consultation ---
DATE OF CONSULTATION: 03/15/2018 INFECTIOUS DISEASE CONSULTATION PRIMARY CARE PHYSICIAN: Dr. Sarkar. REASON FOR CONSULTATION: This is an 87-year-old female who was brought to the Emergency because of decreased oral intake, failure to thrive for last 3 days. HISTORY OF PRESENT ILLNESS: The patient had weakness and she was unable to eat. The patient's condition deteriorated and was brought to the Emergency Room where the patient was found to have UTI. Infectious consultation was called for further treatment. The patient was unable to provide meaningful history. Old chart reviewed, pertinent information obtained. PAST MEDICAL HISTORY: Diabetes, hypertension, hypothyroid, arthritis and dementia. FAMILY HISTORY: Diabetes present. SOCIAL HISTORY: Nonsmoker. REVIEW OF SYSTEMS: A 14-point review of systems negative except above. PHYSICAL EXAMINATION: GENERAL: Elderly female. VITAL SIGNS: Temperature is 98.2, pulse 80, respirations 17, blood pressure 140/60. HEENT: Mild pallor, no icterus or plaque. NECK: Supple. LUNGS: Breath sounds bilaterally. CARDIOVASCULAR: S1 and S2 audible. ABDOMEN: Soft, bowel sounds. LYMPHATIC: No cervical lymph nodes. UA positive for UTI. Cultures are pending. White count is 5000, hemoglobin is 12 grams, platelets 349. UA has 2-5 wbc's, occasional bacteria. Chest x-ray reviewed shows clear lung berry. DIAGNOSES: Urinary tract infection, anorexia, weakness, diabetes, hypertension, hypothyroidism. PLAN: The patient is started on Zosyn. For hypothyroidism, levothyroxine; diabetes, insulin; decubiti, local care. Thank you Dr. Sarkar for this consultation. JOB# [id number]
--- NOTE | 2018-03-16 23:43 | Infectious Disease Prog Note ---
Infectious Disease Subjective - Review of Systems Service Date: 03/16/18 Subjective: Doing well, no fever, Infectious Disease Objective - Results Result Diagrams: 03/16/18 05:20 03/16/18 05:20 Recent Labs: Laboratory Last Values WBC 6.1 Th/cmm (4.8-10.8) 03/16/18 05:20 RBC 3.89 Mil/cmm (3.80-5.20) 03/16/18 05:20 Hgb 11.4 gm/dL (12-16) L 03/16/18 05:20 Hct 34.8 % (41.0-60) L 03/16/18 05:20 MCV 89.4 fl (81-100) 03/16/18 05:20 MCH 29.3 pg (27.0-31.0) 03/16/18 05:20 MCHC Differential 32.8 pg (28.0-36.0) 03/16/18 05:20 RDW 15.3 % (11.5-20.0) 03/16/18 05:20 Plt Count 314 Th/cmm (150-400) 03/16/18 05:20 MPV 7.5 fl 03/16/18 05:20 Add Manual Diff YES 03/15/18 12:20 Neutrophils % 58.3 % (40.0-80.0) 03/16/18 05:20 Band Neutrophils % 1 % (0-10) 03/15/18 12:20 Lymphocytes % 34.2 % (20.0-50.0) 03/16/18 05:20 Monocytes % 5.0 % (2.0-10.0) 03/16/18 05:20 Eosinophils % 2.5 % (0.0-5.0) 03/16/18 05:20 Basophils % 0.0 % (0.0-2.0) 03/16/18 05:20 Neutrophils (Manual) 70 % (40-80) 03/15/18 12:20 Lymphocytes 19 % (20-50) L 03/15/18 12:20 Monocytes 6 % (2-10) 03/15/18 12:20 Eosinophils 1 % (0-5) 03/15/18 12:20 Basophils 3 % (0-3) 03/15/18 12:20 Platelet Estimate ADEQUATE (NORMAL) 03/15/18 12:20 PT 10.3 SECONDS (9.5-11.5) 03/14/18 15:09 INR 0.99 (0.5-1.4) 03/14/18 15:09 PTT (Actin FS) 22.6 SECONDS (26.0-38.0) L 03/14/18 15:09 Sodium 140 mEq/L (136-145) 03/16/18 05:20 Potassium 4.1 mEq/L (3.5-5.1) 03/16/18 05:20 Chloride 108 mEq/L (98-107) H 03/16/18 05:20 Carbon Dioxide 27.1 mEq/L (21.0-31.0) 03/16/18 05:20 Anion Gap 9.0 (7.0-16.0) 03/16/18 05:20 BUN 11 mg/dL (7-25) 03/16/18 05:20 Creatinine 0.5 mg/dL (0.6-1.2) L 03/16/18 05:20 Est GFR ( Amer) TNP 03/16/18 05:20 Est GFR (Non-Af Amer) TNP 03/16/18 05:20 BUN/Creatinine Ratio 22.0 03/16/18 05:20 Glucose 66 mg/dL (70-105) L D 03/16/18 05:20 POC Glucose 179 MG/DL (70 - 105) H 03/16/18 20:43 Whole Bld Lactic Acid 2.82 mmol/L (0.60-1.99) H* 03/14/18 17:13 Calcium 9.0 mg/dL (8.6-10.3) 03/16/18 05:20 Total Bilirubin 0.3 mg/dL (0.3-1.0) 03/16/18 05:20 AST 26 U/L (13-39) 03/16/18 05:20 ALT 34 U/L (7-52) 03/16/18 05:20 Alkaline Phosphatase 66 U/L (34-104) 03/16/18 05:20 Creatine Kinase 28 U/L (30-223) L 03/14/18 15:09 Troponin I < 0.01 ng/mL (0.01-0.05) L 03/14/18 15:09 Total Protein 6.1 gm/dL (6.0-8.3) 03/16/18 05:20 Albumin 3.1 gm/dL (3.7-5.3) L 03/16/18 05:20 Globulin 3.0 gm/dL 03/16/18 05:20 Albumin/Globulin Ratio 1.0 (1.0-1.8) 03/16/18 05:20 Triglycerides 148 mg/dL (<150) 03/15/18 12:20 Cholesterol 93 mg/dL (<200) 03/15/18 12:20 LDL Cholesterol Direct 27 mg/dL (75-193) L 03/15/18 12:20 HDL Cholesterol 39 mg/dL (23-92) 03/15/18 12:20 Amylase 20 U/L (29-103) L 03/14/18 15:09 Lipase 18 U/L (11-82) 03/14/18 15:09 TSH 1.29 uIU/ml (0.34-5.60) 03/15/18 12:20 Urine Source MIDSTREAM 03/14/18 16:45 Urine Color YELLOW 03/14/18 16:45 Urine Clarity CLEAR (CLEAR) 03/14/18 16:45 Urine pH 6.0 (4.6 - 8.0) 03/14/18 16:45 Ur Specific Virgil 1.025 (1.005-1.030) 03/14/18 16:45 Urine Protein NEGATIVE mg/dL (NEGATIVE) 03/14/18 16:45 Urine Glucose (UA) 500 mg/dL (NEGATIVE) H 03/14/18 16:45 Urine Ketones NEGATIVE mg/dL (NEGATIVE) 03/14/18 16:45 Urine Blood NEGATIVE (NEGATIVE) 03/14/18 16:45 Urine Nitrate NEGATIVE (NEGATIVE) 03/14/18 16:45 Urine Bilirubin NEGATIVE (NEGATIVE) 03/14/18 16:45 Urine Urobilinogen 0.2 E.U./dL (0.2 - 1.0) 03/14/18 16:45 Ur Leukocyte Esterase NEGATIVE (NEGATIVE) 03/14/18 16:45 Urine RBC 0-2 /hpf (0-5) 03/14/18 16:45 Urine WBC 2-5 /hpf (0-5) 03/14/18 16:45 Ur Epithelial Cells FEW /lpf (FEW) 03/14/18 16:45 Urine Bacteria OCCASIONAL /hpf (NONE SEEN) 03/14/18 16:45 - Physical Exam Vitals and I&O: Vital Signs Temp 98.7 F 03/16/18 20:00 Pulse 75 03/16/18 20:00 Resp 18 03/16/18 20:00 BP 114/54 03/16/18 20:00 Pulse Ox 100 03/16/18 20:00 Intake & Output 03/16/18 03/16/18 03/17/18 06:59 18:59 06:59 Intake Total 250 300 Balance 250 300 Weight (lbs) 72.121 kg 72.121 kg Intake: Intake, IV Amount 100 50 Piperacillin Sodium/ 100 50 Tazobact 3.375 gm In Sodium Chloride 0.9% 50 ml @ 100 mls/hr IV Q6HR [facility] Rx#:[id number] Oral 150 250 Other: # Voids 2 3 # Bowel Movements 1 1 Stool Characteristics Soft Brown Weight Source Bedscale Bedscale Active Medications: Current Medications Acetaminophen (Tylenol) 650 mg PO Q4HR PRN PRN Reason: MILD PAIN OR TEMP >101 Stop: 05/13/18 21:08 Acetaminophen (Tylenol Extra Strength) 1,000 mg PO Q4HR PRN PRN Reason: MODERATE PAIN Stop: 05/13/18 21:08 Ascorbic Acid (Vitamin C) 500 mg PO DAILY [facility] Stop: 05/14/18 08:59 Last Admin: 03/16/18 08:21 Dose: 500 mg Aspirin (Aspirin Chewable) 81 mg PO DAILY [facility] Stop: 05/14/18 08:59 Last Admin: 03/16/18 08:21 Dose: 81 mg Docusate Sodium (Colace) 100 mg PO DAILY [facility] Stop: 05/14/18 08:59 Last Admin: 03/16/18 08:21 Dose: 100 mg Donepezil HCl (Aricept) 10 mg PO DAILY [facility] Stop: 05/14/18 08:59 Last Admin: 03/16/18 08:21 Dose: 10 mg Ferrous Sulfate (Iron) 325 mg PO QDAC [facility] Stop: 05/14/18 07:29 Last Admin: 03/16/18 06:57 Dose: 325 mg Dextrose/Sodium Chloride (D5-0.9%Ns) 1,000 mls @ 60 mls/hr IV .[id number] [facility] Stop: 05/13/18 19:59 Last Admin: 03/16/18 05:06 Dose: Not Given Piperacillin Sod/Tazobactam (Sod 3.375 gm/ Sodium Chloride) 50 mls @ 100 mls/ hr IV Q6HR [facility]; Protocol Stop: 05/13/18 19:59 Last Admin: 03/16/18 17:50 Dose: 100 mls/hr Insulin Aspart (Novolog Insulin Sliding Scale) 0 units SUBQ ACHS [facility]; Protocol Stop: 05/13/18 20:59 Last Admin: 03/16/18 21:00 Dose: 2 units Insulin Detemir (Levemir Insulin) 15 units SUBQ BID [facility] Stop: 05/14/18 08:59 Last Admin: 03/16/18 17:46 Dose: 15 units Levothyroxine Sodium (Synthroid) 0.088 mg PO QDAC [facility] Stop: 05/14/18 07:29 Last Admin: 03/16/18 06:57 Dose: 0.088 mg Magnesium Hydroxide (Milk Of Magnesia) 30 ml PO HS PRN PRN Reason: Constipation Stop: 05/13/18 21:08 Metformin HCl (Glucophage) 500 mg PO BIDWM [facility] Stop: 05/14/18 07:59 Last Admin: 03/16/18 17:46 Dose: 500 mg Sodium Phosphate (Fleet Enema) 135 ml RC Q48H PRN PRN Reason: IF DULCOLAX INEFFECTIVE Stop: 05/13/18 21:08 General: no acute distress, well developed, well nourished HEENT: atraumatic, normocephalic, PERRLA, EOMI Neck: supple, no thyromegaly Cardiovascular: S1S2, regular, systolic murmur Lungs: clear to auscultation bilaterally, clear to percussion Abdomen: soft, no tender Extremities: no cyanosis, no clubbing, no edema Neurological: awake, alert Skin: intact Infectious Disease Assmt/Plan - Assessment Assessment: 1. UTI. 2. DM2 3. HTN\ 4, Dementia. - Plan Plan: Continue Zosyn. Nutritional Asmnt/Malnutr-PDOC - Dietary Evaluation Malnutrition Findings (Please click <Entered> for more info): Nutritional Asmnt/Malnutrition Start: 03/15/18 16: 12 Text: Status: Complete Freq: Protocol: Document 03/15/18 16:12 LCHENG (Rec: 03/15/18 16:37 [id number]) Nutritional Asmnt/Malnutrition Patient General Information Nutritional Screening High Risk Diagnosis UTI, weakness, FTT, lactic acidosis Pertinent Medical Hx/Surgical Hx HTN, DM, thyroid, arthritis, dementia Subjective Information Pt seen lying in bed taking blood work. Per BUS OPERATOR, pt consumed 75% of breakfast this morning. Current Diet Order/ Nutrition Support pureed JASON CCHO 60gm Pertinent Medications Vit C, D5-0.9ns, colace, iron, novolog, levemir, synthroid, glucophage, piperacillin Pertinent Labs 03/15 Na 135, Cr 0.5, glucose 227, POC 195-218 Nutritional Hx/Data Height 1.7 m Height (Calculated Centimeters) 170.2 Current Weight (lbs) 69.853 kg Weight (Calculated Kilograms) 69.9 Weight (Calculated Grams) 93639.2 % [place] Body Weight 135 Body Mass Index (BMI) 24.1 Weight Status Approriate GI Symptoms GI Symptoms None Last BM 03/15 Difficult in: None Skin Integrity/Comment: Per wound care note Scar tissue present on Sacral area; Buttocks have dark discoloration from moisture Current %PO Good (75-100%) Estimated Nutritional Goals BEE in Kcals: Using Current wt Calories/Kcals/Kg 25-30 Kcals Calculated 4063-6202 Protein: Using Current wt Protein g/k Protein Calculated 70 Fluid: ml 1750-2100ml (1ml/kcal) Nutritional Problem 1. Problem Problem altered nutrition related labs Etiology hx of DM Signs/Symptoms: glucose 227, POC 195-218 Malnutrition Alert Is there a minimum of two criteria No selected? Query Text:Check all the applicable criteria. A minimum of two criteria are recommended for diagnosis of either severe or non-severe malnutrition. Malnutrition Related to Morbid Obesity Malnutrition related to morbid obesity No Intervention/Recommendation Comments 1. [facility] pureed diet as ordered. 2. Monitor PO intake, wt, labs and skin integrity 3. F/U as moderate risk in 3-5 days, 03/18-03/20, PO check 03/17 Expected Outcomes/Goals Expected Outcomes/Goals 1. PO intake to meet at least 75% of nutritional needs. 2. Wt stability, skin to remain intact, labs to approach WNL.
[2018-03-17] MEDS: D5-0.9%NS 1,000 ML IV SCH ×2 (05:23→21:57)
[2018-03-17] MEDS: Ferrous Sulfate 325 MG TAB PO SCH (06:46)
[2018-03-17] MEDS: Levothyroxine 0.088 Mg Tab PO SCH (06:46)
[2018-03-17] MEDS: INSULIN ASPART SLIDING SCALE 100 UNITS/ML UNIT SUBQ SCH ×4 (06:55→21:45)
[2018-03-17] MEDS: Aspirin 81mg Chewable Tab PO SCH (08:58)
[2018-03-17] MEDS: Insulin Detemir 100 units/mL 10mL Vial SUBQ SCH ×2 (09:04→18:26)
--- NOTE | 2018-03-17 22:24 | Progress Notes ---
DATE: 03/17/2018 SUBJECTIVE: The patient was seen in her room. The patient is a poor historian due to medical condition. Otherwise, the patient appears to be comfortable and in no acute distress. OBJECTIVE: VITAL SIGNS: Temperature 97.7, heart rate 64, blood pressure 136/64, respirations 17, 98% on room air. HEENT: Head is atraumatic and normocephalic. Eyes: Bilateral conjunctivae are clear. Bilateral pupils equal, round and reactive. NECK: Supple. No JVD. CARDIOVASCULAR: S1 and S2, without murmur. PULMONARY: Clear to auscultation. GASTROINTESTINAL: Soft and nontender without guarding. Positive bowel sounds. MUSCULOSKELETAL: No clubbing. No cyanosis noted. ASSESSMENT: 1. Urinary tract infection. 2. Failure to thrive. 3. Dementia. 4. Hypertension. 5. Osteoarthritis. 6. Hypothyroidism. PLAN: We will keep the patient inpatient. We will follow up with the psychiatrist for psychiatric consult and also follow up with ID doctor for antibiotic management. Treatment plans were discussed with the patient's nurse. Treatment plans were discussed with Dr. Sarkar. JOB# [id number]
--- NOTE | 2018-03-17 23:37 | Infectious Disease Prog Note ---
Infectious Disease Subjective - Review of Systems Service Date: 03/17/18 Infectious Disease Objective - Results Result Diagrams: 03/16/18 05:20 03/16/18 05:20 Recent Labs: Laboratory Last Values WBC 6.1 Th/cmm (4.8-10.8) 03/16/18 05:20 RBC 3.89 Mil/cmm (3.80-5.20) 03/16/18 05:20 Hgb 11.4 gm/dL (12-16) L 03/16/18 05:20 Hct 34.8 % (41.0-60) L 03/16/18 05:20 MCV 89.4 fl (81-100) 03/16/18 05:20 MCH 29.3 pg (27.0-31.0) 03/16/18 05:20 MCHC Differential 32.8 pg (28.0-36.0) 03/16/18 05:20 RDW 15.3 % (11.5-20.0) 03/16/18 05:20 Plt Count 314 Th/cmm (150-400) 03/16/18 05:20 MPV 7.5 fl 03/16/18 05:20 Add Manual Diff YES 03/15/18 12:20 Neutrophils % 58.3 % (40.0-80.0) 03/16/18 05:20 Band Neutrophils % 1 % (0-10) 03/15/18 12:20 Lymphocytes % 34.2 % (20.0-50.0) 03/16/18 05:20 Monocytes % 5.0 % (2.0-10.0) 03/16/18 05:20 Eosinophils % 2.5 % (0.0-5.0) 03/16/18 05:20 Basophils % 0.0 % (0.0-2.0) 03/16/18 05:20 Neutrophils (Manual) 70 % (40-80) 03/15/18 12:20 Lymphocytes 19 % (20-50) L 03/15/18 12:20 Monocytes 6 % (2-10) 03/15/18 12:20 Eosinophils 1 % (0-5) 03/15/18 12:20 Basophils 3 % (0-3) 03/15/18 12:20 Platelet Estimate ADEQUATE (NORMAL) 03/15/18 12:20 PT 10.3 SECONDS (9.5-11.5) 03/14/18 15:09 INR 0.99 (0.5-1.4) 03/14/18 15:09 PTT (Actin FS) 22.6 SECONDS (26.0-38.0) L 03/14/18 15:09 Sodium 140 mEq/L (136-145) 03/16/18 05:20 Potassium 4.1 mEq/L (3.5-5.1) 03/16/18 05:20 Chloride 108 mEq/L (98-107) H 03/16/18 05:20 Carbon Dioxide 27.1 mEq/L (21.0-31.0) 03/16/18 05:20 Anion Gap 9.0 (7.0-16.0) 03/16/18 05:20 BUN 11 mg/dL (7-25) 03/16/18 05:20 Creatinine 0.5 mg/dL (0.6-1.2) L 03/16/18 05:20 Est GFR ( Amer) TNP 03/16/18 05:20 Est GFR (Non-Af Amer) TNP 03/16/18 05:20 BUN/Creatinine Ratio 22.0 03/16/18 05:20 Glucose 66 mg/dL (70-105) L D 03/16/18 05:20 POC Glucose 206 MG/DL (70 - 105) H 03/17/18 21:15 Whole Bld Lactic Acid 2.82 mmol/L (0.60-1.99) H* 03/14/18 17:13 Calcium 9.0 mg/dL (8.6-10.3) 03/16/18 05:20 Total Bilirubin 0.3 mg/dL (0.3-1.0) 03/16/18 05:20 AST 26 U/L (13-39) 03/16/18 05:20 ALT 34 U/L (7-52) 03/16/18 05:20 Alkaline Phosphatase 66 U/L (34-104) 03/16/18 05:20 Creatine Kinase 28 U/L (30-223) L 03/14/18 15:09 Troponin I < 0.01 ng/mL (0.01-0.05) L 03/14/18 15:09 Total Protein 6.1 gm/dL (6.0-8.3) 03/16/18 05:20 Albumin 3.1 gm/dL (3.7-5.3) L 03/16/18 05:20 Globulin 3.0 gm/dL 03/16/18 05:20 Albumin/Globulin Ratio 1.0 (1.0-1.8) 03/16/18 05:20 Triglycerides 148 mg/dL (<150) 03/15/18 12:20 Cholesterol 93 mg/dL (<200) 03/15/18 12:20 LDL Cholesterol Direct 27 mg/dL (75-193) L 03/15/18 12:20 HDL Cholesterol 39 mg/dL (23-92) 03/15/18 12:20 Amylase 20 U/L (29-103) L 03/14/18 15:09 Lipase 18 U/L (11-82) 03/14/18 15:09 TSH 1.29 uIU/ml (0.34-5.60) 03/15/18 12:20 Urine Source MIDSTREAM 03/14/18 16:45 Urine Color YELLOW 03/14/18 16:45 Urine Clarity CLEAR (CLEAR) 03/14/18 16:45 Urine pH 6.0 (4.6 - 8.0) 03/14/18 16:45 Ur Specific [place] 1.025 (1.005-1.030) 03/14/18 16:45 Urine Protein NEGATIVE mg/dL (NEGATIVE) 03/14/18 16:45 Urine Glucose (UA) 500 mg/dL (NEGATIVE) H 03/14/18 16:45 Urine Ketones NEGATIVE mg/dL (NEGATIVE) 03/14/18 16:45 Urine Blood NEGATIVE (NEGATIVE) 03/14/18 16:45 Urine Nitrate NEGATIVE (NEGATIVE) 03/14/18 16:45 Urine Bilirubin NEGATIVE (NEGATIVE) 03/14/18 16:45 Urine Urobilinogen 0.2 E.U./dL (0.2 - 1.0) 03/14/18 16:45 Ur Leukocyte Esterase NEGATIVE (NEGATIVE) 03/14/18 16:45 Urine RBC 0-2 /hpf (0-5) 03/14/18 16:45 Urine WBC 2-5 /hpf (0-5) 03/14/18 16:45 Ur Epithelial Cells FEW /lpf (FEW) 09/05/18 16:45 Urine Bacteria OCCASIONAL /hpf (NONE SEEN) 03/14/18 16:45 - Physical Exam Vitals and I&O: Vital Signs Temp 98.2 F 03/17/18 20:00 Pulse 77 03/17/18 20:00 Resp 18 03/17/18 20:00 BP 129/64 03/17/18 20:00 Pulse Ox 98 03/17/18 20:00 Intake & Output 03/17/18 03/17/18 03/18/18 06:59 18:59 06:59 Intake Total 50 600 994 Balance 50 600 994 Weight (lbs) 74.843 kg 74.843 kg Intake: Intake, IV Amount 50 100 994 D5-0.9%Ns 1,000 ml @ 60 994 mls/hr IV .[id number] [facility] Rx #:[id number] Piperacillin Sodium/ 50 100 Tazobact 3.375 gm In Sodium Chloride 0.9% 50 ml @ 100 mls/hr IV Q6HR [facility] Rx#:[id number] Oral 500 Other: # Voids 3 # Bowel Movements 0 Weight Source Bedscale Bedscale Active Medications: Current Medications Acetaminophen (Tylenol) 650 mg PO Q4HR PRN PRN Reason: MILD PAIN OR TEMP >101 Stop: 05/13/18 21:08 Acetaminophen (Tylenol Extra Strength) 1,000 mg PO Q4HR PRN PRN Reason: MODERATE PAIN Stop: 05/13/18 21:08 Ascorbic Acid (Vitamin C) 500 mg PO DAILY [facility] Stop: 05/14/18 08:59 Last Admin: 03/17/18 08:58 Dose: 500 mg Aspirin (Aspirin Chewable) 81 mg PO DAILY [facility] Stop: 05/14/18 08:59 Last Admin: 03/17/18 08:58 Dose: 81 mg Docusate Sodium (Colace) 100 mg PO DAILY [facility] Stop: 05/14/18 08:59 Last Admin: 03/17/18 08:58 Dose: 100 mg Donepezil HCl (Aricept) 10 mg PO DAILY [facility] Stop: 05/14/18 08:59 Last Admin: 03/17/18 08:58 Dose: 10 mg Ferrous Sulfate (Iron) 325 mg PO QDAC [facility] Stop: 05/14/18 07:29 Last Admin: 03/17/18 06:46 Dose: 325 mg Dextrose/Sodium Chloride (D5-0.9%Ns) 1,000 mls @ 60 mls/hr IV .[id number] [facility] Stop: 05/13/18 19:59 Last Admin: 03/17/18 21:57 Dose: 60 mls/hr Piperacillin Sod/Tazobactam (Sod 3.375 gm/ Sodium Chloride) 50 mls @ 100 mls/ hr IV Q6HR [facility]; Protocol Stop: 05/13/18 19:59 Last Admin: 03/17/18 19:07 Dose: 100 mls/hr Insulin Aspart (Novolog Insulin Sliding Scale) 0 units SUBQ ACHS [facility]; Protocol Stop: 05/13/18 20:59 Last Admin: 03/17/18 21:45 Dose: 4 units Insulin Detemir (Levemir Insulin) 15 units SUBQ BID [facility] Stop: 05/14/18 08:59 Last Admin: 03/17/18 18:26 Dose: 15 units Levothyroxine Sodium (Synthroid) 0.088 mg PO QDAC [facility] Stop: 05/14/18 07:29 Last Admin: 03/17/18 06:46 Dose: 0.088 mg Magnesium Hydroxide (Milk Of Magnesia) 30 ml PO HS PRN PRN Reason: Constipation Stop: 05/13/18 21:08 Metformin HCl (Glucophage) 500 mg PO BIDWM [facility] Stop: 05/14/18 07:59 Last Admin: 03/17/18 19:07 Dose: 500 mg Sodium Phosphate (Fleet Enema) 135 ml RC Q48H PRN PRN Reason: IF DULCOLAX INEFFECTIVE Stop: 05/13/18 21:08 General: no acute distress, well developed, well nourished HEENT: atraumatic, normocephalic, PERRLA, EOMI Neck: supple, no thyromegaly Cardiovascular: S1S2, regular Lungs: clear to auscultation bilaterally, clear to percussion Abdomen: soft, no tender, no hepatomegaly Extremities: no cyanosis, no clubbing, no edema Neurological: awake, alert Infectious Disease Assmt/Plan - Assessment Assessment: UTI DM2 HTN - Plan Plan: Continue Zosyn Nutritional Asmnt/Malnutr-PDOC - Dietary Evaluation Malnutrition Findings (Please click <Entered> for more info): Nutritional Asmnt/Malnutrition Start: 03/15/18 16: 12 Text: Status: Complete Freq: Protocol: Document 03/15/18 16:12 ISRRAELBETH (Rec: 03/15/18 16:37 CLARENCE [email or web address]) Nutritional Asmnt/Malnutrition Patient General Information Nutritional Screening High Risk Diagnosis UTI, weakness, FTT, lactic acidosis Pertinent Medical Hx/Surgical Hx HTN, DM, thyroid, arthritis, dementia Subjective Information Pt seen lying in bed taking blood work. Per [employer] WORK[employer], pt consumed 75% of breakfast this morning. Current Diet Order/ Nutrition Support pureed JASON CCHO 60gm Pertinent Medications Vit C, D5-0.9ns, colace, iron, novolog, levemir, synthroid, glucophage, piperacillin Pertinent Labs 03/15 Na 135, Cr 0.5, glucose 227, POC 195-218 Nutritional Hx/Data Height 1.7 m Height (Calculated Centimeters) 170.2 Current Weight (lbs) 69.853 kg Weight (Calculated Kilograms) 69.9 Weight (Calculated Grams) 97684.2 % [place] Body Weight 135 Body Mass Index (BMI) 24.1 Weight Status Approriate GI Symptoms GI Symptoms None Last BM 03/15 Difficult in: None Skin Integrity/Comment: Per wound care note Scar tissue present on Sacral area; Buttocks have dark discoloration from moisture Current %PO Good (75-100%) Estimated Nutritional Goals BEE in Kcals: Using Current wt Calories/Kcals/Kg 25-30 Kcals Calculated 5609-8949 Protein: Using Current wt Protein g/k Protein Calculated 70 Fluid: ml 1750-2100ml (1ml/kcal) Nutritional Problem 1. Problem Problem altered nutrition related labs Etiology hx of DM Signs/Symptoms: glucose 227, POC 195-218 Malnutrition Alert Is there a minimum of two criteria No selected? Query Text:Check all the applicable criteria. A minimum of two criteria are recommended for diagnosis of either severe or non-severe malnutrition. Malnutrition Related to Morbid Obesity Malnutrition related to morbid obesity No Intervention/Recommendation Comments 1. Continue with CCHO JASON pureed diet as ordered. 2. Monitor PO intake, wt, labs and skin integrity 3. F/U as moderate risk in 3-5 days, 03/18-03/20, PO check 03/17 Expected Outcomes/Goals Expected Outcomes/Goals 1. PO intake to meet at least 75% of nutritional needs. 2. Wt stability, skin to remain intact, labs to approach WNL.
[2018-03-18] MEDS: Levothyroxine 0.088 Mg Tab PO SCH (06:32)
[2018-03-18] MEDS: Ferrous Sulfate 325 MG TAB PO SCH (06:33)
[2018-03-18] MEDS: INSULIN ASPART SLIDING SCALE 100 UNITS/ML UNIT SUBQ SCH ×4 (06:47→21:26)
[2018-03-18] MEDS: Aspirin 81mg Chewable Tab PO SCH (08:07)
[2018-03-18] MEDS: Insulin Detemir 100 units/mL 10mL Vial SUBQ SCH ×2 (08:13→17:53)
--- NOTE | 2018-03-18 11:26 | General Progress Note ---
Subjective - Review of Systems Events since last encounter: patient is comfortable in no distress Objective - Results Result Diagrams: 03/16/18 05:20 03/16/18 05:20 Recent Labs: Laboratory Last Values WBC 6.1 Th/cmm (4.8-10.8) 03/16/18 05:20 RBC 3.89 Mil/cmm (3.80-5.20) 03/16/18 05:20 Hgb 11.4 gm/dL (12-16) L 03/16/18 05:20 Hct 34.8 % (41.0-60) L 03/16/18 05:20 MCV 89.4 fl (81-100) 03/16/18 05:20 MCH 29.3 pg (27.0-31.0) 03/16/18 05:20 MCHC Differential 32.8 pg (28.0-36.0) 03/16/18 05:20 RDW 15.3 % (11.5-20.0) 03/16/18 05:20 Plt Count 314 Th/cmm (150-400) 03/16/18 05:20 MPV 7.5 fl 03/16/18 05:20 Add Manual Diff YES 03/15/18 12:20 Neutrophils % 58.3 % (40.0-80.0) 03/16/18 05:20 Band Neutrophils % 1 % (0-10) 03/15/18 12:20 Lymphocytes % 34.2 % (20.0-50.0) 03/16/18 05:20 Monocytes % 5.0 % (2.0-10.0) 03/16/18 05:20 Eosinophils % 2.5 % (0.0-5.0) 03/16/18 05:20 Basophils % 0.0 % (0.0-2.0) 03/16/18 05:20 Neutrophils (Manual) 70 % (40-80) 03/15/18 12:20 Lymphocytes 19 % (20-50) L 03/15/18 12:20 Monocytes 6 % (2-10) 03/15/18 12:20 Eosinophils 1 % (0-5) 03/15/18 12:20 Basophils 3 % (0-3) 03/15/18 12:20 Platelet Estimate ADEQUATE (NORMAL) 03/15/18 12:20 PT 10.3 SECONDS (9.5-11.5) 03/14/18 15:09 INR 0.99 (0.5-1.4) 03/14/18 15:09 PTT (Actin FS) 22.6 SECONDS (26.0-38.0) L 03/14/18 15:09 Sodium 140 mEq/L (136-145) 03/16/18 05:20 Potassium 4.1 mEq/L (3.5-5.1) 03/16/18 05:20 Chloride 108 mEq/L (98-107) H 03/16/18 05:20 Carbon Dioxide 27.1 mEq/L (21.0-31.0) 03/16/18 05:20 Anion Gap 9.0 (7.0-16.0) 03/16/18 05:20 BUN 11 mg/dL (7-25) 03/16/18 05:20 Creatinine 0.5 mg/dL (0.6-1.2) L 03/16/18 05:20 Est GFR ( Amer) TNP 03/16/18 05:20 Est GFR (Non-Af Amer) TNP 03/16/18 05:20 BUN/Creatinine Ratio 22.0 03/16/18 05:20 Glucose 66 mg/dL (70-105) L D 03/16/18 05:20 POC Glucose 84 MG/DL (70 - 105) 03/18/18 06:45 Whole Bld Lactic Acid 1.38 mmol/L (0.60-1.99) 03/18/18 05:40 Calcium 9.0 mg/dL (8.6-10.3) 03/16/18 05:20 Total Bilirubin 0.3 mg/dL (0.3-1.0) 03/16/18 05:20 AST 26 U/L (13-39) 03/16/18 05:20 ALT 34 U/L (7-52) 03/16/18 05:20 Alkaline Phosphatase 66 U/L (34-104) 03/16/18 05:20 Creatine Kinase 28 U/L (30-223) L 03/14/18 15:09 Troponin I < 0.01 ng/mL (0.01-0.05) L 03/14/18 15:09 Total Protein 6.1 gm/dL (6.0-8.3) 03/16/18 05:20 Albumin 3.1 gm/dL (3.7-5.3) L 03/16/18 05:20 Globulin 3.0 gm/dL 03/16/18 05:20 Albumin/Globulin Ratio 1.0 (1.0-1.8) 03/16/18 05:20 Triglycerides 148 mg/dL (<150) 03/15/18 12:20 Cholesterol 93 mg/dL (<200) 03/15/18 12:20 LDL Cholesterol Direct 27 mg/dL (75-193) L 03/15/18 12:20 HDL Cholesterol 39 mg/dL (23-92) 03/15/18 12:20 Amylase 20 U/L (29-103) L 03/14/18 15:09 Lipase 18 U/L (11-82) 03/14/18 15:09 TSH 1.29 uIU/ml (0.34-5.60) 03/15/18 12:20 Urine Source MIDSTREAM 03/14/18 16:45 Urine Color YELLOW 03/14/18 16:45 Urine Clarity CLEAR (CLEAR) 03/14/18 16:45 Urine pH 6.0 (4.6 - 8.0) 03/14/18 16:45 Ur Specific [place] 1.025 (1.005-1.030) 03/14/18 16:45 Urine Protein NEGATIVE mg/dL (NEGATIVE) 03/14/18 16:45 Urine Glucose (UA) 500 mg/dL (NEGATIVE) H 03/14/18 16:45 Urine Ketones NEGATIVE mg/dL (NEGATIVE) 03/14/18 16:45 Urine Blood NEGATIVE (NEGATIVE) 03/14/18 16:45 Urine Nitrate NEGATIVE (NEGATIVE) 03/14/18 16:45 Urine Bilirubin NEGATIVE (NEGATIVE) 03/14/18 16:45 Urine Urobilinogen 0.2 E.U./dL (0.2 - 1.0) 03/14/18 16:45 Ur Leukocyte Esterase NEGATIVE (NEGATIVE) 03/14/18 16:45 Urine RBC 0-2 /hpf (0-5) 03/14/18 16:45 Urine WBC 2-5 /hpf (0-5) 03/14/18 16:45 Ur Epithelial Cells FEW /lpf (FEW) 03/14/18 16:45 Urine Bacteria OCCASIONAL /hpf (NONE SEEN) 03/14/18 16:45 - Physical Exam Vitals and I&O: Vital Signs Temp 97.6 F 03/18/18 07:55 Pulse 72 03/18/18 07:55 Resp 18 03/18/18 07:55 BP 130/52 03/18/18 07:55 Pulse Ox 98 03/18/18 07:55 Intake & Output 03/17/18 03/18/18 03/18/18 18:59 06:59 18:59 Intake Total 600 1094 Output Total 3 Balance 600 1091 Weight (lbs) 74.843 kg 73.284 kg Intake: Intake, IV Amount 100 1094 D5-0.9%Ns 1,000 ml @ 60 994 mls/hr IV .[id number] [facility] Rx #:[id number] Piperacillin Sodium/ 100 100 Tazobact 3.375 gm In Sodium Chloride 0.9% 50 ml @ 100 mls/hr IV Q6HR [facility] Rx#:[id number] Oral 500 Output: Urine/Stool Mix 3 Other: # Voids 3 # Bowel Movements 0 Weight Source Bedscale Bedscale Active Medications: Current Medications Acetaminophen (Tylenol) 650 mg PO Q4HR PRN PRN Reason: MILD PAIN OR TEMP >101 Stop: 05/13/18 21:08 Acetaminophen (Tylenol Extra Strength) 1,000 mg PO Q4HR PRN PRN Reason: MODERATE PAIN Stop: 05/13/18 21:08 Ascorbic Acid (Vitamin C) 500 mg PO DAILY [facility] Stop: 05/14/18 08:59 Last Admin: 03/18/18 08:07 Dose: 500 mg Aspirin (Aspirin Chewable) 81 mg PO DAILY [facility] Stop: 05/14/18 08:59 Last Admin: 03/18/18 08:07 Dose: 81 mg Docusate Sodium (Colace) 100 mg PO DAILY [facility] Stop: 05/14/18 08:59 Last Admin: 03/18/18 08:07 Dose: 100 mg Donepezil HCl (Aricept) 10 mg PO DAILY [facility] Stop: 05/14/18 08:59 Last Admin: 03/18/18 08:08 Dose: 10 mg Ferrous Sulfate (Iron) 325 mg PO QDAC [facility] Stop: 05/14/18 07:29 Last Admin: 03/18/18 06:33 Dose: 325 mg Dextrose/Sodium Chloride (D5-0.9%Ns) 1,000 mls @ 60 mls/hr IV .[id number] [facility] Stop: 05/13/18 19:59 Last Admin: 03/17/18 21:57 Dose: 60 mls/hr Piperacillin Sod/Tazobactam (Sod 3.375 gm/ Sodium Chloride) 50 mls @ 100 mls/ hr IV Q6HR [facility]; Protocol Stop: 05/13/18 19:59 Last Admin: 03/18/18 07:56 Dose: 100 mls/hr Insulin Aspart (Novolog Insulin Sliding Scale) 0 units SUBQ ACHS [facility]; Protocol Stop: 05/13/18 20:59 Last Admin: 03/18/18 06:47 Dose: Not Given Insulin Detemir (Levemir Insulin) 15 units SUBQ BID [facility] Stop: 05/14/18 08:59 Last Admin: 03/18/18 08:13 Dose: Not Given Levothyroxine Sodium (Synthroid) 0.088 mg PO QDAC [facility] Stop: 05/14/18 07:29 Last Admin: 03/18/18 06:32 Dose: 0.088 mg Magnesium Hydroxide (Milk Of Magnesia) 30 ml PO HS PRN PRN Reason: Constipation Stop: 05/13/18 21:08 Metformin HCl (Glucophage) 500 mg PO BIDWM [facility] Stop: 05/14/18 07:59 Last Admin: 03/18/18 08:07 Dose: 500 mg Sodium Phosphate (Fleet Enema) 135 ml RC Q48H PRN PRN Reason: IF DULCOLAX INEFFECTIVE Stop: 05/13/18 21:08 Nutritional Asmnt/Malnutr-PDOC - Dietary Evaluation Malnutrition Findings (Please click <Entered> for more info): Nutritional Asmnt/Malnutrition Start: 03/15/18 16: 12 Text: Status: Complete Freq: Protocol: Document 03/15/18 16:12 CLARENCE (Rec: 03/15/18 16:37 CLARENCE [email or web address]) Nutritional Asmnt/Malnutrition Patient General Information Nutritional Screening High Risk Diagnosis UTI, weakness, FTT, lactic acidosis Pertinent Medical Hx/Surgical Hx HTN, DM, thyroid, arthritis, dementia Subjective Information Pt seen lying in bed taking blood work. 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 Current Diet Order/ Nutrition Support [facility] Pertinent Medications Vit C, D5-0.9ns, colace, iron, novolog, levemir, synthroid, glucophage, piperacillin Pertinent Labs 03/15 Na 135, Cr 0.5, glucose 227, POC 195-218 Nutritional Hx/Data Height 1.7 m Height (Calculated Centimeters) 170.2 Current Weight (lbs) 69.853 kg Weight (Calculated Kilograms) 69.9 Weight (Calculated Grams) 84240.2 % [place] Body Weight 135 Body Mass Index (BMI) 24.1 Weight Status Approriate GI Symptoms GI Symptoms None Last BM 03/15 Difficult in: None Skin Integrity/Comment: Per wound care note Scar tissue present on Sacral area; Buttocks have dark discoloration from moisture Current %PO Good (75-100%) Estimated Nutritional Goals BEE in Kcals: Using Current wt Calories/Kcals/Kg 25-30 Kcals Calculated 7801-1781 Protein: Using Current wt Protein g/k Protein Calculated 70 Fluid: ml 1750-2100ml (1ml/kcal) Nutritional Problem 1. Problem Problem altered nutrition related labs Etiology hx of DM Signs/Symptoms: glucose 227, POC 195-218 Malnutrition Alert Is there a minimum of two criteria No selected? Query Text:Check all the applicable criteria. A minimum of two criteria are recommended for diagnosis of either severe or non-severe malnutrition. Malnutrition Related to Morbid Obesity Malnutrition related to morbid obesity No Intervention/Recommendation Comments 1. Continue with [facility] JASON pureed diet as ordered. 2. Monitor PO intake, wt, labs and skin integrity 3. F/U as moderate risk in 3-5 days, 03/18-03/20, PO check 03/17 Expected Outcomes/Goals Expected Outcomes/Goals 1. PO intake to meet at least 75% of nutritional needs. 2. Wt stability, skin to remain intact, labs to approach WNL.
[2018-03-18] MEDS: D5-0.9%NS 1,000 ML IV SCH (17:51)
--- NOTE | 2018-03-18 20:04 | Infectious Disease Prog Note ---
Infectious Disease Subjective - Review of Systems Service Date: 03/18/18 Subjective: There is no new change, no fever. Infectious Disease Objective - Results Result Diagrams: 03/16/18 05:20 03/16/18 05:20 Recent Labs: Laboratory Last Values WBC 6.1 Th/cmm (4.8-10.8) 03/16/18 05:20 RBC 3.89 Mil/cmm (3.80-5.20) 03/16/18 05:20 Hgb 11.4 gm/dL (12-16) L 03/16/18 05:20 Hct 34.8 % (41.0-60) L 03/16/18 05:20 MCV 89.4 fl (81-100) 03/16/18 05:20 MCH 29.3 pg (27.0-31.0) 03/16/18 05:20 MCHC Differential 32.8 pg (28.0-36.0) 03/16/18 05:20 RDW 15.3 % (11.5-20.0) 03/16/18 05:20 Plt Count 314 Th/cmm (150-400) 03/16/18 05:20 MPV 7.5 fl 03/16/18 05:20 Add Manual Diff YES 03/15/18 12:20 Neutrophils % 58.3 % (40.0-80.0) 03/16/18 05:20 Band Neutrophils % 1 % (0-10) 03/15/18 12:20 Lymphocytes % 34.2 % (20.0-50.0) 03/16/18 05:20 Monocytes % 5.0 % (2.0-10.0) 03/16/18 05:20 Eosinophils % 2.5 % (0.0-5.0) 03/16/18 05:20 Basophils % 0.0 % (0.0-2.0) 03/16/18 05:20 Neutrophils (Manual) 70 % (40-80) 03/15/18 12:20 Lymphocytes 19 % (20-50) L 03/15/18 12:20 Monocytes 6 % (2-10) 03/15/18 12:20 Eosinophils 1 % (0-5) 03/15/18 12:20 Basophils 3 % (0-3) 03/15/18 12:20 Platelet Estimate ADEQUATE (NORMAL) 03/15/18 12:20 PT 10.3 SECONDS (9.5-11.5) 03/14/18 15:09 INR 0.99 (0.5-1.4) 03/14/18 15:09 PTT (Actin FS) 22.6 SECONDS (26.0-38.0) L 03/14/18 15:09 Sodium 140 mEq/L (136-145) 03/16/18 05:20 Potassium 4.1 mEq/L (3.5-5.1) 03/16/18 05:20 Chloride 108 mEq/L (98-107) H 03/16/18 05:20 Carbon Dioxide 27.1 mEq/L (21.0-31.0) 03/16/18 05:20 Anion Gap 9.0 (7.0-16.0) 03/16/18 05:20 BUN 11 mg/dL (7-25) 03/16/18 05:20 Creatinine 0.5 mg/dL (0.6-1.2) L 03/16/18 05:20 Est GFR ( Amer) TNP 03/16/18 05:20 Est GFR (Non-Af Amer) TNP 03/16/18 05:20 BUN/Creatinine Ratio 22.0 03/16/18 05:20 Glucose 66 mg/dL (70-105) L D 03/16/18 05:20 POC Glucose 221 MG/DL (70 - 105) H 03/18/18 17:19 Whole Bld Lactic Acid 1.38 mmol/L (0.60-1.99) 03/18/18 05:40 Calcium 9.0 mg/dL (8.6-10.3) 03/16/18 05:20 Total Bilirubin 0.3 mg/dL (0.3-1.0) 03/16/18 05:20 AST 26 U/L (13-39) 03/16/18 05:20 ALT 34 U/L (7-52) 03/16/18 05:20 Alkaline Phosphatase 66 U/L (34-104) 03/16/18 05:20 Creatine Kinase 28 U/L (30-223) L 03/14/18 15:09 Troponin I < 0.01 ng/mL (0.01-0.05) L 09/05/18 15:09 Total Protein 6.1 gm/dL (6.0-8.3) 03/16/18 05:20 Albumin 3.1 gm/dL (3.7-5.3) L 03/16/18 05:20 Globulin 3.0 gm/dL 03/16/18 05:20 Albumin/Globulin Ratio 1.0 (1.0-1.8) 03/16/18 05:20 Triglycerides 148 mg/dL (<150) 03/15/18 12:20 Cholesterol 93 mg/dL (<200) 03/15/18 12:20 LDL Cholesterol Direct 27 mg/dL (75-193) L 03/15/18 12:20 HDL Cholesterol 39 mg/dL (23-92) 03/15/18 12:20 Amylase 20 U/L (29-103) L 03/14/18 15:09 Lipase 18 U/L (11-82) 03/14/18 15:09 TSH 1.29 uIU/ml (0.34-5.60) 03/15/18 12:20 Urine Source MIDSTREAM 03/14/18 16:45 Urine Color YELLOW 03/14/18 16:45 Urine Clarity CLEAR (CLEAR) 03/14/18 16:45 Urine pH 6.0 (4.6 - 8.0) 03/14/18 16:45 Ur Specific [place] 1.025 (1.005-1.030) 03/14/18 16:45 Urine Protein NEGATIVE mg/dL (NEGATIVE) 03/14/18 16:45 Urine Glucose (UA) 500 mg/dL (NEGATIVE) H 03/14/18 16:45 Urine Ketones NEGATIVE mg/dL (NEGATIVE) 03/14/18 16:45 Urine Blood NEGATIVE (NEGATIVE) 03/14/18 16:45 Urine Nitrate NEGATIVE (NEGATIVE) 03/14/18 16:45 Urine Bilirubin NEGATIVE (NEGATIVE) 03/14/18 16:45 Urine Urobilinogen 0.2 E.U./dL (0.2 - 1.0) 03/14/18 16:45 Ur Leukocyte Esterase NEGATIVE (NEGATIVE) 03/14/18 16:45 Urine RBC 0-2 /hpf (0-5) 03/14/18 16:45 Urine WBC 2-5 /hpf (0-5) 03/14/18 16:45 Ur Epithelial Cells FEW /lpf (FEW) 03/14/18 16:45 Urine Bacteria OCCASIONAL /hpf (NONE SEEN) 03/14/18 16:45 - Physical Exam Vitals and I&O: Vital Signs Temp 98.4 F 03/18/18 16:08 Pulse 72 03/18/18 16:08 Resp 17 03/18/18 16:08 BP 138/57 03/18/18 16:08 Pulse Ox 98 03/18/18 16:08 Intake & Output 03/18/18 03/18/18 03/19/18 06:59 18:59 06:59 Intake Total 1094 1600 Output Total 3 Balance 1091 1600 Weight (lbs) 73.284 kg 73.284 kg Intake: Intake, IV Amount 1094 1100 D5-0.9%Ns 1,000 ml @ 60 994 1000 mls/hr IV .[id number] [facility] Rx #:[id number] Piperacillin Sodium/ 100 100 Tazobact 3.375 gm In Sodium Chloride 0.9% 50 ml @ 100 mls/hr IV Q6HR [facility] Rx#:[id number] Oral 400 Other 100 Output: Urine/Stool Mix 3 Other: # Voids 3 # Bowel Movements 0 Weight Source Bedscale Bedscale Active Medications: Current Medications Acetaminophen (Tylenol) 650 mg PO Q4HR PRN PRN Reason: MILD PAIN OR TEMP >101 Stop: 05/13/18 21:08 Acetaminophen (Tylenol Extra Strength) 1,000 mg PO Q4HR PRN PRN Reason: MODERATE PAIN Stop: 05/13/18 21:08 Ascorbic Acid (Vitamin C) 500 mg PO DAILY [facility] Stop: 05/14/18 08:59 Last Admin: 03/18/18 08:07 Dose: 500 mg Aspirin (Aspirin Chewable) 81 mg PO DAILY [facility] Stop: 05/14/18 08:59 Last Admin: 03/18/18 08:07 Dose: 81 mg Docusate Sodium (Colace) 100 mg PO DAILY [facility] Stop: 05/14/18 08:59 Last Admin: 03/18/18 08:07 Dose: 100 mg Donepezil HCl (Aricept) 10 mg PO DAILY [facility] Stop: 05/14/18 08:59 Last Admin: 03/18/18 08:08 Dose: 10 mg Ferrous Sulfate (Iron) 325 mg PO QDAC [facility] Stop: 11/05/18 07:29 Last Admin: 03/18/18 06:33 Dose: 325 mg Dextrose/Sodium Chloride (D5-0.9%Ns) 1,000 mls @ 60 mls/hr IV .[id number] [facility] Stop: 05/13/18 19:59 Last Admin: 03/18/18 17:51 Dose: 60 mls/hr Piperacillin Sod/Tazobactam (Sod 3.375 gm/ Sodium Chloride) 50 mls @ 100 mls/ hr IV Q6HR [facility]; Protocol Stop: 05/13/18 19:59 Last Admin: 03/18/18 17:21 Dose: 100 mls/hr Insulin Aspart (Novolog Insulin Sliding Scale) 0 units SUBQ ACHS [facility]; Protocol Stop: 05/13/18 20:59 Last Admin: 03/18/18 17:55 Dose: 4 units Insulin Detemir (Levemir Insulin) 15 units SUBQ BID [facility] Stop: 05/14/18 08:59 Last Admin: 03/18/18 17:53 Dose: 15 units Levothyroxine Sodium (Synthroid) 0.088 mg PO QDAC [facility] Stop: 05/14/18 07:29 Last Admin: 03/18/18 06:32 Dose: 0.088 mg Magnesium Hydroxide (Milk Of Magnesia) 30 ml PO HS PRN PRN Reason: Constipation Stop: 05/13/18 21:08 Metformin HCl (Glucophage) 500 mg PO BIDWM [facility] Stop: 05/14/18 07:59 Last Admin: 03/18/18 17:22 Dose: 500 mg Sodium Phosphate (Fleet Enema) 135 ml RC Q48H PRN PRN Reason: IF DULCOLAX INEFFECTIVE Stop: 05/13/18 21:08 General: no acute distress, well developed, well nourished, cachectic HEENT: atraumatic, normocephalic, PERRLA, EOMI Neck: supple, no thyromegaly Cardiovascular: S1S2, regular, systolic murmur Lungs: clear to auscultation bilaterally, clear to percussion Abdomen: soft, bowel sounds, no tender, no distended, no mass, no hepatomegaly, no splenomegaly, no ascites Extremities: no cyanosis, no clubbing, no edema Neurological: awake Infectious Disease Assmt/Plan - Assessment Assessment: UTI DM2 HTN - Plan Plan: Continue Zosyn Nutritional Asmnt/Malnutr-PDOC - Dietary Evaluation Malnutrition Findings (Please click <Entered> for more info): Nutritional Asmnt/Malnutrition Start: 03/15/18 16: 12 Text: Status: Complete Freq: Protocol: Document 03/15/18 16:12 CLARENCE (Rec: 03/15/18 16:37 [email or web address]) Nutritional Asmnt/Malnutrition Patient General Information Nutritional Screening High Risk Diagnosis UTI, weakness, FTT, lactic acidosis Pertinent Medical Hx/Surgical Hx HTN, DM, thyroid, arthritis, dementia Subjective Information Pt seen lying in bed taking blood work. Per NUCLEAR WEAPONS SPECIALIST, pt consumed 75% of breakfast this morning. Current Diet Order/ Nutrition Support pureed JASON CCHO 60gm Pertinent Medications Vit C, D5-0.9ns, colace, iron, novolog, levemir, synthroid, glucophage, piperacillin Pertinent Labs 03/15 Na 135, Cr 0.5, glucose 227, POC 195-218 Nutritional Hx/Data Height 1.7 m Height (Calculated Centimeters) 170.2 Current Weight (lbs) 69.853 kg Weight (Calculated Kilograms) 69.9 Weight (Calculated Grams) 56033.2 % [place] Body Weight 135 Body Mass Index (BMI) 24.1 Weight Status Approriate GI Symptoms GI Symptoms None Last BM 03/15 Difficult in: None Skin Integrity/Comment: Per wound care note Scar tissue present on Sacral area; Buttocks have dark discoloration from moisture Current %PO Good (75-100%) Estimated Nutritional Goals BEE in Kcals: Using Current wt Calories/Kcals/Kg 25-30 Kcals Calculated 3553-5800 Protein: Using Current wt Protein g/k Protein Calculated 70 Fluid: ml 1750-2100ml (1ml/kcal) Nutritional Problem 1. Problem Problem altered nutrition related labs Etiology hx of DM Signs/Symptoms: glucose 227, POC 195-218 Malnutrition Alert Is there a minimum of two criteria No selected? Query Text:Check all the applicable criteria. A minimum of two criteria are recommended for diagnosis of either severe or non-severe malnutrition. Malnutrition Related to Morbid Obesity Malnutrition related to morbid obesity No Intervention/Recommendation Comments 1. Continue with CCHO JASON pureed diet as ordered. 2. Monitor PO intake, wt, labs and skin integrity 3. F/U as moderate risk in 3-5 days, 03/18-03/20, PO check 03/17 Expected Outcomes/Goals Expected Outcomes/Goals 1. PO intake to meet at least 75% of nutritional needs. 2. Wt stability, skin to remain intact, labs to approach WNL.
--- NOTE | 2018-03-18 20:16 | Infectious Disease Prog Note ---
Infectious Disease Subjective - Review of Systems Service Date: 03/18/18 Subjective: There is no new change, no fever. Infectious Disease Objective - Results Result Diagrams: 03/16/18 05:20 03/16/18 05:20 Recent Labs: Laboratory Last Values WBC 6.1 Th/cmm (4.8-10.8) 03/16/18 05:20 RBC 3.89 Mil/cmm (3.80-5.20) 03/16/18 05:20 Hgb 11.4 gm/dL (12-16) L 03/16/18 05:20 Hct 34.8 % (41.0-60) L 03/16/18 05:20 MCV 89.4 fl (81-100) 03/16/18 05:20 MCH 29.3 pg (27.0-31.0) 03/16/18 05:20 MCHC Differential 32.8 pg (28.0-36.0) 03/16/18 05:20 RDW 15.3 % (11.5-20.0) 03/16/18 05:20 Plt Count 314 Th/cmm (150-400) 03/16/18 05:20 MPV 7.5 fl 03/16/18 05:20 Add Manual Diff YES 03/15/18 12:20 Neutrophils % 58.3 % (40.0-80.0) 03/16/18 05:20 Band Neutrophils % 1 % (0-10) 03/15/18 12:20 Lymphocytes % 34.2 % (20.0-50.0) 03/16/18 05:20 Monocytes % 5.0 % (2.0-10.0) 03/16/18 05:20 Eosinophils % 2.5 % (0.0-5.0) 03/16/18 05:20 Basophils % 0.0 % (0.0-2.0) 03/16/18 05:20 Neutrophils (Manual) 70 % (40-80) 03/15/18 12:20 Lymphocytes 19 % (20-50) L 03/15/18 12:20 Monocytes 6 % (2-10) 03/15/18 12:20 Eosinophils 1 % (0-5) 03/15/18 12:20 Basophils 3 % (0-3) 03/15/18 12:20 Platelet Estimate ADEQUATE (NORMAL) 03/15/18 12:20 PT 10.3 SECONDS (9.5-11.5) 03/14/18 15:09 INR 0.99 (0.5-1.4) 03/14/18 15:09 PTT (Actin FS) 22.6 SECONDS (26.0-38.0) L 03/14/18 15:09 Sodium 140 mEq/L (136-145) 03/16/18 05:20 Potassium 4.1 mEq/L (3.5-5.1) 03/16/18 05:20 Chloride 108 mEq/L (98-107) H 03/16/18 05:20 Carbon Dioxide 27.1 mEq/L (21.0-31.0) 03/16/18 05:20 Anion Gap 9.0 (7.0-16.0) 03/16/18 05:20 BUN 11 mg/dL (7-25) 03/16/18 05:20 Creatinine 0.5 mg/dL (0.6-1.2) L 03/16/18 05:20 Est GFR ( Amer) TNP 03/16/18 05:20 Est GFR (Non-Af Amer) TNP 03/16/18 05:20 BUN/Creatinine Ratio 22.0 03/16/18 05:20 Glucose 66 mg/dL (70-105) L D 03/16/18 05:20 POC Glucose 221 MG/DL (70 - 105) H 03/18/18 17:19 Whole Bld Lactic Acid 1.38 mmol/L (0.60-1.99) 03/18/18 05:40 Calcium 9.0 mg/dL (8.6-10.3) 03/16/18 05:20 Total Bilirubin 0.3 mg/dL (0.3-1.0) 03/16/18 05:20 AST 26 U/L (13-39) 03/16/18 05:20 ALT 34 U/L (7-52) 03/16/18 05:20 Alkaline Phosphatase 66 U/L (34-104) 03/16/18 05:20 Creatine Kinase 28 U/L (30-223) L 03/14/18 15:09 Troponin I < 0.01 ng/mL (0.01-0.05) L 09/05/18 15:09 Total Protein 6.1 gm/dL (6.0-8.3) 03/16/18 05:20 Albumin 3.1 gm/dL (3.7-5.3) L 03/16/18 05:20 Globulin 3.0 gm/dL 03/16/18 05:20 Albumin/Globulin Ratio 1.0 (1.0-1.8) 03/16/18 05:20 Triglycerides 148 mg/dL (<150) 03/15/18 12:20 Cholesterol 93 mg/dL (<200) 03/15/18 12:20 LDL Cholesterol Direct 27 mg/dL (75-193) L 03/15/18 12:20 HDL Cholesterol 39 mg/dL (23-92) 03/15/18 12:20 Amylase 20 U/L (29-103) L 03/14/18 15:09 Lipase 18 U/L (11-82) 03/14/18 15:09 TSH 1.29 uIU/ml (0.34-5.60) 03/15/18 12:20 Urine Source MIDSTREAM 03/14/18 16:45 Urine Color YELLOW 03/14/18 16:45 Urine Clarity CLEAR (CLEAR) 03/14/18 16:45 Urine pH 6.0 (4.6 - 8.0) 03/14/18 16:45 Ur Specific [place] 1.025 (1.005-1.030) 03/14/18 16:45 Urine Protein NEGATIVE mg/dL (NEGATIVE) 03/14/18 16:45 Urine Glucose (UA) 500 mg/dL (NEGATIVE) H 03/14/18 16:45 Urine Ketones NEGATIVE mg/dL (NEGATIVE) 03/14/18 16:45 Urine Blood NEGATIVE (NEGATIVE) 03/14/18 16:45 Urine Nitrate NEGATIVE (NEGATIVE) 03/14/18 16:45 Urine Bilirubin NEGATIVE (NEGATIVE) 03/14/18 16:45 Urine Urobilinogen 0.2 E.U./dL (0.2 - 1.0) 03/14/18 16:45 Ur Leukocyte Esterase NEGATIVE (NEGATIVE) 03/14/18 16:45 Urine RBC 0-2 /hpf (0-5) 03/14/18 16:45 Urine WBC 2-5 /hpf (0-5) 03/14/18 16:45 Ur Epithelial Cells FEW /lpf (FEW) 03/14/18 16:45 Urine Bacteria OCCASIONAL /hpf (NONE SEEN) 03/14/18 16:45 - Physical Exam Vitals and I&O: Vital Signs Temp 98.4 F 03/18/18 16:08 Pulse 72 03/18/18 16:08 Resp 17 03/18/18 16:08 BP 138/57 03/18/18 16:08 Pulse Ox 98 03/18/18 16:08 Intake & Output 03/18/18 03/18/18 03/19/18 06:59 18:59 06:59 Intake Total 1094 1600 Output Total 3 Balance 1091 1600 Weight (lbs) 73.284 kg 73.284 kg Intake: Intake, IV Amount 1094 1100 D5-0.9%Ns 1,000 ml @ 60 994 1000 mls/hr IV .[id number] [facility] Rx #:[id number] Piperacillin Sodium/ 100 100 Tazobact 3.375 gm In Sodium Chloride 0.9% 50 ml @ 100 mls/hr IV Q6HR [facility] Rx#:[id number] Oral 400 Other 100 Output: Urine/Stool Mix 3 Other: # Voids 3 # Bowel Movements 0 Weight Source Bedscale Bedscale Active Medications: Current Medications Acetaminophen (Tylenol) 650 mg PO Q4HR PRN PRN Reason: MILD PAIN OR TEMP >101 Stop: 05/13/18 21:08 Acetaminophen (Tylenol Extra Strength) 1,000 mg PO Q4HR PRN PRN Reason: MODERATE PAIN Stop: 05/13/18 21:08 Ascorbic Acid (Vitamin C) 500 mg PO DAILY [facility] Stop: 05/14/18 08:59 Last Admin: 03/18/18 08:07 Dose: 500 mg Aspirin (Aspirin Chewable) 81 mg PO DAILY [facility] Stop: 05/14/18 08:59 Last Admin: 03/18/18 08:07 Dose: 81 mg Docusate Sodium (Colace) 100 mg PO DAILY [facility] Stop: 05/14/18 08:59 Last Admin: 03/18/18 08:07 Dose: 100 mg Donepezil HCl (Aricept) 10 mg PO DAILY [facility] Stop: 05/14/18 08:59 Last Admin: 03/18/18 08:08 Dose: 10 mg Ferrous Sulfate (Iron) 325 mg PO QDAC [facility] Stop: 11/05/18 07:29 Last Admin: 03/18/18 06:33 Dose: 325 mg Dextrose/Sodium Chloride (D5-0.9%Ns) 1,000 mls @ 60 mls/hr IV .[id number] [facility] Stop: 05/13/18 19:59 Last Admin: 03/18/18 17:51 Dose: 60 mls/hr Piperacillin Sod/Tazobactam (Sod 3.375 gm/ Sodium Chloride) 50 mls @ 100 mls/ hr IV Q6HR [facility]; Protocol Stop: 05/13/18 19:59 Last Admin: 03/18/18 17:21 Dose: 100 mls/hr Insulin Aspart (Novolog Insulin Sliding Scale) 0 units SUBQ ACHS [facility]; Protocol Stop: 05/13/18 20:59 Last Admin: 03/18/18 17:55 Dose: 4 units Insulin Detemir (Levemir Insulin) 15 units SUBQ BID [facility] Stop: 05/14/18 08:59 Last Admin: 03/18/18 17:53 Dose: 15 units Levothyroxine Sodium (Synthroid) 0.088 mg PO QDAC [facility] Stop: 05/14/18 07:29 Last Admin: 03/18/18 06:32 Dose: 0.088 mg Magnesium Hydroxide (Milk Of Magnesia) 30 ml PO HS PRN PRN Reason: Constipation Stop: 05/13/18 21:08 Metformin HCl (Glucophage) 500 mg PO BIDWM [facility] Stop: 05/14/18 07:59 Last Admin: 03/18/18 17:22 Dose: 500 mg Sodium Phosphate (Fleet Enema) 135 ml RC Q48H PRN PRN Reason: IF DULCOLAX INEFFECTIVE Stop: 05/13/18 21:08 General: no acute distress, well developed, well nourished HEENT: atraumatic, normocephalic, PERRLA, moist mucous membrane Neck: supple, no thyromegaly Cardiovascular: S1S2, regular Lungs: clear to auscultation bilaterally, clear to percussion Abdomen: soft, no tender Extremities: no cyanosis, no clubbing, no edema Neurological: awake, alert Infectious Disease Assmt/Plan - Assessment Assessment: UTI DM2 HTN - Plan Plan: Continue Zosyn Nutritional Asmnt/Malnutr-PDOC - Dietary Evaluation Malnutrition Findings (Please click <Entered> for more info): Nutritional Asmnt/Malnutrition Start: 03/15/18 16: 12 Text: Status: Complete Freq: Protocol: Document 03/15/18 16:12 CLARENCE (Rec: 03/15/18 16:37 CLARENCE [email or web address]) Nutritional Asmnt/Malnutrition Patient General Information Nutritional Screening High Risk Diagnosis UTI, weakness, FTT, lactic acidosis Pertinent Medical Hx/Surgical Hx HTN, DM, thyroid, arthritis, dementia Subjective Information Pt seen lying in bed taking blood work. Per LOCAL DELIVERY DRIVER, pt consumed 75% of breakfast this morning. Current Diet Order/ Nutrition Support pureed JASON CCHO 60gm Pertinent Medications Vit C, D5-0.9ns, colace, iron, novolog, levemir, synthroid, glucophage, piperacillin Pertinent Labs 03/15 Na 135, Cr 0.5, glucose 227, POC 195-218 Nutritional Hx/Data Height 1.7 m Height (Calculated Centimeters) 170.2 Current Weight (lbs) 69.853 kg Weight (Calculated Kilograms) 69.9 Weight (Calculated Grams) 14418.2 % [place] Body Weight 135 Body Mass Index (BMI) 24.1 Weight Status Approriate GI Symptoms GI Symptoms None Last BM 03/15 Difficult in: None Skin Integrity/Comment: Per wound care note Scar tissue present on Sacral area; Buttocks have dark discoloration from moisture Current %PO Good (75-100%) Estimated Nutritional Goals BEE in Kcals: Using Current wt Calories/Kcals/Kg 25-30 Kcals Calculated 4509-0480 Protein: Using Current wt Protein g/k Protein Calculated 70 Fluid: ml 1750-2100ml (1ml/kcal) Nutritional Problem 1. Problem Problem altered nutrition related labs Etiology hx of DM Signs/Symptoms: glucose 227, POC 195-218 Malnutrition Alert Is there a minimum of two criteria No selected? Query Text:Check all the applicable criteria. A minimum of two criteria are recommended for diagnosis of either severe or non-severe malnutrition. Malnutrition Related to Morbid Obesity Malnutrition related to morbid obesity No Intervention/Recommendation Comments 1. Continue with CCHO JASON pureed diet as ordered. 2. Monitor PO intake, wt, labs and skin integrity 3. F/U as moderate risk in 3-5 days, 03/18-03/20, PO check 03/17 Expected Outcomes/Goals Expected Outcomes/Goals 1. PO intake to meet at least 75% of nutritional needs. 2. Wt stability, skin to remain intact, labs to approach WNL.
[2018-03-19] MEDS: Levothyroxine 0.088 Mg Tab PO SCH (06:31)
[2018-03-19] MEDS: Ferrous Sulfate 325 MG TAB PO SCH (06:31)
[2018-03-19] MEDS: INSULIN ASPART SLIDING SCALE 100 UNITS/ML UNIT SUBQ SCH ×2 (06:35→12:00)
[2018-03-19] MEDS: Aspirin 81mg Chewable Tab PO SCH (10:19)
[2018-03-19] MEDS: Insulin Detemir 100 units/mL 10mL Vial SUBQ SCH (11:11)
--- NOTE | 2018-03-19 12:18 | Infectious Disease Prog Note ---
Infectious Disease Subjective - Review of Systems Service Date: 03/19/18 Subjective: There is no new change, no fever. Infectious Disease Objective - Results Result Diagrams: 03/16/18 05:20 03/16/18 05:20 Recent Labs: Laboratory Last Values WBC 6.1 Th/cmm (4.8-10.8) 03/16/18 05:20 RBC 3.89 Mil/cmm (3.80-5.20) 03/16/18 05:20 Hgb 11.4 gm/dL (12-16) L 03/16/18 05:20 Hct 34.8 % (41.0-60) L 03/16/18 05:20 MCV 89.4 fl (81-100) 03/16/18 05:20 MCH 29.3 pg (27.0-31.0) 03/16/18 05:20 MCHC Differential 32.8 pg (28.0-36.0) 03/16/18 05:20 RDW 15.3 % (11.5-20.0) 03/16/18 05:20 Plt Count 314 Th/cmm (150-400) 03/16/18 05:20 MPV 7.5 fl 03/16/18 05:20 Add Manual Diff YES 03/15/18 12:20 Neutrophils % 58.3 % (40.0-80.0) 03/16/18 05:20 Band Neutrophils % 1 % (0-10) 03/15/18 12:20 Lymphocytes % 34.2 % (20.0-50.0) 03/16/18 05:20 Monocytes % 5.0 % (2.0-10.0) 03/16/18 05:20 Eosinophils % 2.5 % (0.0-5.0) 03/16/18 05:20 Basophils % 0.0 % (0.0-2.0) 03/16/18 05:20 Neutrophils (Manual) 70 % (40-80) 03/15/18 12:20 Lymphocytes 19 % (20-50) L 03/15/18 12:20 Monocytes 6 % (2-10) 03/15/18 12:20 Eosinophils 1 % (0-5) 03/15/18 12:20 Basophils 3 % (0-3) 03/15/18 12:20 Platelet Estimate ADEQUATE (NORMAL) 03/15/18 12:20 PT 10.3 SECONDS (9.5-11.5) 03/14/18 15:09 INR 0.99 (0.5-1.4) 03/14/18 15:09 PTT (Actin FS) 22.6 SECONDS (26.0-38.0) L 03/14/18 15:09 Sodium 140 mEq/L (136-145) 03/16/18 05:20 Potassium 4.1 mEq/L (3.5-5.1) 03/16/18 05:20 Chloride 108 mEq/L (98-107) H 03/16/18 05:20 Carbon Dioxide 27.1 mEq/L (21.0-31.0) 03/16/18 05:20 Anion Gap 9.0 (7.0-16.0) 03/16/18 05:20 BUN 11 mg/dL (7-25) 03/16/18 05:20 Creatinine 0.5 mg/dL (0.6-1.2) L 03/16/18 05:20 Est GFR ( Amer) TNP 03/16/18 05:20 Est GFR (Non-Af Amer) TNP 03/16/18 05:20 BUN/Creatinine Ratio 22.0 03/16/18 05:20 Glucose 66 mg/dL (70-105) L D 03/16/18 05:20 POC Glucose 86 MG/DL (70 - 105) 03/19/18 06:34 Whole Bld Lactic Acid 1.38 mmol/L (0.60-1.99) 03/18/18 05:40 Calcium 9.0 mg/dL (8.6-10.3) 03/16/18 05:20 Total Bilirubin 0.3 mg/dL (0.3-1.0) 03/16/18 05:20 AST 26 U/L (13-39) 03/16/18 05:20 ALT 34 U/L (7-52) 03/16/18 05:20 Alkaline Phosphatase 66 U/L (34-104) 03/16/18 05:20 Creatine Kinase 28 U/L (30-223) L 03/14/18 15:09 Troponin I < 0.01 ng/mL (0.01-0.05) L 03/14/18 15:09 Total Protein 6.1 gm/dL (6.0-8.3) 03/16/18 05:20 Albumin 3.1 gm/dL (3.7-5.3) L 03/16/18 05:20 Globulin 3.0 gm/dL 03/16/18 05:20 Albumin/Globulin Ratio 1.0 (1.0-1.8) 03/16/18 05:20 Triglycerides 148 mg/dL (<150) 03/15/18 12:20 Cholesterol 93 mg/dL (<200) 03/15/18 12:20 LDL Cholesterol Direct 27 mg/dL (75-193) L 03/15/18 12:20 HDL Cholesterol 39 mg/dL (23-92) 03/15/18 12:20 Amylase 20 U/L (29-103) L 03/14/18 15:09 Lipase 18 U/L (11-82) 03/14/18 15:09 TSH 1.29 uIU/ml (0.34-5.60) 03/15/18 12:20 Urine Source MIDSTREAM 03/14/18 16:45 Urine Color YELLOW 03/14/18 16:45 Urine Clarity CLEAR (CLEAR) 03/14/18 16:45 Urine pH 6.0 (4.6 - 8.0) 03/14/18 16:45 Ur Specific [place] 1.025 (1.005-1.030) 03/14/18 16:45 Urine Protein NEGATIVE mg/dL (NEGATIVE) 03/14/18 16:45 Urine Glucose (UA) 500 mg/dL (NEGATIVE) H 03/14/18 16:45 Urine Ketones NEGATIVE mg/dL (NEGATIVE) 03/14/18 16:45 Urine Blood NEGATIVE (NEGATIVE) 03/14/18 16:45 Urine Nitrate NEGATIVE (NEGATIVE) 03/14/18 16:45 Urine Bilirubin NEGATIVE (NEGATIVE) 03/14/18 16:45 Urine Urobilinogen 0.2 E.U./dL (0.2 - 1.0) 03/14/18 16:45 Ur Leukocyte Esterase NEGATIVE (NEGATIVE) 03/14/18 16:45 Urine RBC 0-2 /hpf (0-5) 03/14/18 16:45 Urine WBC 2-5 /hpf (0-5) 03/14/18 16:45 Ur Epithelial Cells FEW /lpf (FEW) 03/14/18 16:45 Urine Bacteria OCCASIONAL /hpf (NONE SEEN) 03/14/18 16:45 - Physical Exam Vitals and I&O: Vital Signs Temp 97.0 F 03/19/18 11:57 Pulse 61 03/19/18 11:57 Resp 18 03/19/18 11:57 BP 155/66 03/19/18 11:57 Pulse Ox 97 03/19/18 11:57 Intake & Output 03/18/18 03/19/18 03/19/18 18:59 06:59 18:59 Intake Total 1650 200 Balance 1650 200 Weight (lbs) 73.284 kg 73.799 kg 73.799 kg Intake: Intake, IV Amount 1150 D5-0.9%Ns 1,000 ml @ 60 1000 mls/hr IV .[id number] [facility] Rx #:[id number] Piperacillin Sodium/ 150 Tazobact 3.375 gm In Sodium Chloride 0.9% 50 ml @ 100 mls/hr IV Q6HR [facility] Rx#:[id number] Oral 400 200 Other 100 Other: # Voids 3 2 # Bowel Movements 0 1 Weight Source Bedscale Bedscale Bedscale Active Medications: Current Medications Acetaminophen (Tylenol) 650 mg PO Q4HR PRN PRN Reason: MILD PAIN OR TEMP >101 Stop: 05/13/18 21:08 Acetaminophen (Tylenol Extra Strength) 1,000 mg PO Q4HR PRN PRN Reason: MODERATE PAIN Stop: 05/13/18 21:08 Ascorbic Acid (Vitamin C) 500 mg PO DAILY [facility] Stop: 05/14/18 08:59 Last Admin: 03/19/18 10:20 Dose: 500 mg Aspirin (Aspirin Chewable) 81 mg PO DAILY [facility] Stop: 05/14/18 08:59 Last Admin: 03/19/18 10:19 Dose: 81 mg Docusate Sodium (Colace) 100 mg PO DAILY [facility] Stop: 05/14/18 08:59 Last Admin: 03/19/18 10:21 Dose: 100 mg Donepezil HCl (Aricept) 10 mg PO DAILY [facility] Stop: 05/14/18 08:59 Last Admin: 03/19/18 10:18 Dose: 10 mg Ferrous Sulfate (Iron) 325 mg PO QDAC [facility] Stop: 05/14/18 07:29 Last Admin: 03/19/18 06:31 Dose: 325 mg Dextrose/Sodium Chloride (D5-0.9%Ns) 1,000 mls @ 60 mls/hr IV .[id number] [facility] Stop: 05/13/18 19:59 Last Admin: 03/18/18 17:51 Dose: 60 mls/hr Piperacillin Sod/Tazobactam (Sod 3.375 gm/ Sodium Chloride) 50 mls @ 100 mls/ hr IV Q6HR [facility]; Protocol Stop: 05/13/18 19:59 Last Admin: 03/19/18 00:17 Dose: 100 mls/hr Insulin Aspart (Novolog Insulin Sliding Scale) 0 units SUBQ ACHS [facility]; Protocol Stop: 05/13/18 20:59 Last Admin: 03/19/18 06:35 Dose: Not Given Insulin Detemir (Levemir Insulin) 15 units SUBQ BID [facility] Stop: 05/14/18 08:59 Last Admin: 03/19/18 11:11 Dose: Not Given Levothyroxine Sodium (Synthroid) 0.088 mg PO QDAC [facility] Stop: 05/14/18 07:29 Last Admin: 03/19/18 06:31 Dose: 0.088 mg Magnesium Hydroxide (Milk Of Magnesia) 30 ml PO HS PRN PRN Reason: Constipation Stop: 05/13/18 21:08 Metformin HCl (Glucophage) 500 mg PO BIDWM [facility] Stop: 05/14/18 07:59 Last Admin: 03/19/18 10:25 Dose: 500 mg Sodium Phosphate (Fleet Enema) 135 ml RC Q48H PRN PRN Reason: IF DULCOLAX INEFFECTIVE Stop: 05/13/18 21:08 General: no acute distress, well developed, well nourished HEENT: atraumatic, normocephalic, PERRLA, EOMI Neck: supple, no thyromegaly Cardiovascular: S1S2, regular Lungs: clear to auscultation bilaterally, clear to percussion Abdomen: soft, no tender, no distended Extremities: no cyanosis, no clubbing, no edema Neurological: awake, alert, oriented Skin: intact Infectious Disease Assmt/Plan - Assessment Assessment: UTI DM2 HTN - Plan Plan: Change Zosyn to cipro po for 4 more days. Nutritional Asmnt/Malnutr-PDOC - Dietary Evaluation Malnutrition Findings (Please click <Entered> for more info): Nutritional Asmnt/Malnutrition Start: 03/15/18 16: 12 Text: Status: Complete Freq: Protocol: Document 03/15/18 16:12 CLARENCE (Rec: 03/15/18 16:37 ISRRAELBETH [email or web address]) Nutritional Asmnt/Malnutrition Patient General Information Nutritional Screening High Risk Diagnosis UTI, weakness, FTT, lactic acidosis Pertinent Medical Hx/Surgical Hx HTN, DM, thyroid, arthritis, dementia Subjective Information Pt seen lying in bed taking blood work. Per SILK HANGER, pt consumed 75% of breakfast this morning. Current Diet Order/ Nutrition Support pureed JASON CCHO 60gm Pertinent Medications Vit C, D5-0.9ns, colace, iron, novolog, levemir, synthroid, glucophage, piperacillin Pertinent Labs 03/15 Na 135, Cr 0.5, glucose 227, POC 195-218 Nutritional Hx/Data Height 1.7 m Height (Calculated Centimeters) 170.2 Current Weight (lbs) 69.853 kg Weight (Calculated Kilograms) 69.9 Weight (Calculated Grams) 81038.2 % [place] Body Weight 135 Body Mass Index (BMI) 24.1 Weight Status Approriate GI Symptoms GI Symptoms None Last BM 03/15 Difficult in: None Skin Integrity/Comment: Per wound care note Scar tissue present on Sacral area; Buttocks have dark discoloration from moisture Current %PO Good (75-100%) Estimated Nutritional Goals BEE in Kcals: Using Current wt Calories/Kcals/Kg 25-30 Kcals Calculated 1309-9315 Protein: Using Current wt Protein g/k Protein Calculated 70 Fluid: ml 1750-2100ml (1ml/kcal) Nutritional Problem 1. Problem Problem altered nutrition related labs Etiology hx of DM Signs/Symptoms: glucose 227, POC 195-218 Malnutrition Alert Is there a minimum of two criteria No selected? Query Text:Check all the applicable criteria. A minimum of two criteria are recommended for diagnosis of either severe or non-severe malnutrition. Malnutrition Related to Morbid Obesity Malnutrition related to morbid obesity No Intervention/Recommendation Comments 1. Continue with CCHO JASON pureed diet as ordered. 2. Monitor PO intake, wt, labs and skin integrity 3. F/U as moderate risk in 3-5 days, 03/18-03/20, PO check 03/17 Expected Outcomes/Goals Expected Outcomes/Goals 1. PO intake to meet at least 75% of nutritional needs. 2. Wt stability, skin to remain intact, labs to approach WNL.
[2018-03-19] MEDS ORDERED: Probiotic Screen MC PRN (12:39)
[2018-03-19] MEDS ORDERED: Lactobacillus Rhamnosus GG 15 Billion CFU CAP.SPRINK PO SCH (14:00)
--- NOTE | 2018-03-19 15:29 | General Progress Note ---
Subjective - Review of Systems Events since last encounter: no new change no fever Objective - Results Result Diagrams: 03/16/18 05:20 03/16/18 05:20 Recent Labs: Laboratory Last Values WBC 6.1 Th/cmm (4.8-10.8) 03/16/18 05:20 RBC 3.89 Mil/cmm (3.80-5.20) 03/16/18 05:20 Hgb 11.4 gm/dL (12-16) L 03/16/18 05:20 Hct 34.8 % (41.0-60) L 03/16/18 05:20 MCV 89.4 fl (81-100) 03/16/18 05:20 MCH 29.3 pg (27.0-31.0) 03/16/18 05:20 MCHC Differential 32.8 pg (28.0-36.0) 03/16/18 05:20 RDW 15.3 % (11.5-20.0) 03/16/18 05:20 Plt Count 314 Th/cmm (150-400) 03/16/18 05:20 MPV 7.5 fl 03/16/18 05:20 Add Manual Diff YES 03/15/18 12:20 Neutrophils % 58.3 % (40.0-80.0) 03/16/18 05:20 Band Neutrophils % 1 % (0-10) 03/15/18 12:20 Lymphocytes % 34.2 % (20.0-50.0) 03/16/18 05:20 Monocytes % 5.0 % (2.0-10.0) 03/16/18 05:20 Eosinophils % 2.5 % (0.0-5.0) 03/16/18 05:20 Basophils % 0.0 % (0.0-2.0) 03/16/18 05:20 Neutrophils (Manual) 70 % (40-80) 03/15/18 12:20 Lymphocytes 19 % (20-50) L 03/15/18 12:20 Monocytes 6 % (2-10) 03/15/18 12:20 Eosinophils 1 % (0-5) 03/15/18 12:20 Basophils 3 % (0-3) 03/15/18 12:20 Platelet Estimate ADEQUATE (NORMAL) 03/15/18 12:20 PT 10.3 SECONDS (9.5-11.5) 03/14/18 15:09 INR 0.99 (0.5-1.4) 03/14/18 15:09 PTT (Actin FS) 22.6 SECONDS (26.0-38.0) L 03/14/18 15:09 Sodium 140 mEq/L (136-145) 03/16/18 05:20 Potassium 4.1 mEq/L (3.5-5.1) 03/16/18 05:20 Chloride 108 mEq/L (98-107) H 03/16/18 05:20 Carbon Dioxide 27.1 mEq/L (21.0-31.0) 03/16/18 05:20 Anion Gap 9.0 (7.0-16.0) 03/16/18 05:20 BUN 11 mg/dL (7-25) 03/16/18 05:20 Creatinine 0.5 mg/dL (0.6-1.2) L 03/16/18 05:20 Est GFR ( Amer) TNP 03/16/18 05:20 Est GFR (Non-Af Amer) TNP 03/16/18 05:20 BUN/Creatinine Ratio 22.0 03/16/18 05:20 Glucose 66 mg/dL (70-105) L D 03/16/18 05:20 POC Glucose 86 MG/DL (70 - 105) 03/19/18 06:34 Whole Bld Lactic Acid 1.38 mmol/L (0.60-1.99) 03/18/18 05:40 Calcium 9.0 mg/dL (8.6-10.3) 03/16/18 05:20 Total Bilirubin 0.3 mg/dL (0.3-1.0) 03/16/18 05:20 AST 26 U/L (13-39) 03/16/18 05:20 ALT 34 U/L (7-52) 03/16/18 05:20 Alkaline Phosphatase 66 U/L (34-104) 03/16/18 05:20 Creatine Kinase 28 U/L (30-223) L 03/14/18 15:09 Troponin I < 0.01 ng/mL (0.01-0.05) L 03/14/18 15:09 Total Protein 6.1 gm/dL (6.0-8.3) 03/16/18 05:20 Albumin 3.1 gm/dL (3.7-5.3) L 03/16/18 05:20 Globulin 3.0 gm/dL 03/16/18 05:20 Albumin/Globulin Ratio 1.0 (1.0-1.8) 03/16/18 05:20 Triglycerides 148 mg/dL (<150) 03/15/18 12:20 Cholesterol 93 mg/dL (<200) 03/15/18 12:20 LDL Cholesterol Direct 27 mg/dL (75-193) L 03/15/18 12:20 HDL Cholesterol 39 mg/dL (23-92) 03/15/18 12:20 Amylase 20 U/L (29-103) L 03/14/18 15:09 Lipase 18 U/L (11-82) 03/14/18 15:09 TSH 1.29 uIU/ml (0.34-5.60) 03/15/18 12:20 Urine Source MIDSTREAM 03/14/18 16:45 Urine Color YELLOW 03/14/18 16:45 Urine Clarity CLEAR (CLEAR) 03/14/18 16:45 Urine pH 6.0 (4.6 - 8.0) 03/14/18 16:45 Ur Specific [place] 1.025 (1.005-1.030) 03/14/18 16:45 Urine Protein NEGATIVE mg/dL (NEGATIVE) 03/14/18 16:45 Urine Glucose (UA) 500 mg/dL (NEGATIVE) H 03/14/18 16:45 Urine Ketones NEGATIVE mg/dL (NEGATIVE) 03/14/18 16:45 Urine Blood NEGATIVE (NEGATIVE) 03/14/18 16:45 Urine Nitrate NEGATIVE (NEGATIVE) 03/14/18 16:45 Urine Bilirubin NEGATIVE (NEGATIVE) 03/14/18 16:45 Urine Urobilinogen 0.2 E.U./dL (0.2 - 1.0) 03/14/18 16:45 Ur Leukocyte Esterase NEGATIVE (NEGATIVE) 03/14/18 16:45 Urine RBC 0-2 /hpf (0-5) 03/14/18 16:45 Urine WBC 2-5 /hpf (0-5) 03/14/18 16:45 Ur Epithelial Cells FEW /lpf (FEW) 03/14/18 16:45 Urine Bacteria OCCASIONAL /hpf (NONE SEEN) 03/14/18 16:45 - Physical Exam Vitals and I&O: Vital Signs Temp 97.0 F 03/19/18 11:57 Pulse 61 03/19/18 11:57 Resp 18 03/19/18 11:57 BP 155/66 03/19/18 11:57 Pulse Ox 97 03/19/18 11:57 Intake & Output 03/18/18 03/19/18 03/19/18 18:59 06:59 18:59 Intake Total 1650 200 Balance 1650 200 Weight (lbs) 73.284 kg 73.799 kg 73.799 kg Intake: Intake, IV Amount 1150 D5-0.9%Ns 1,000 ml @ 60 1000 mls/hr IV .[id number] [facility] Rx #:[id number] Piperacillin Sodium/ 150 Tazobact 3.375 gm In Sodium Chloride 0.9% 50 ml @ 100 mls/hr IV Q6HR [facility] Rx#:[id number] Oral 400 200 Other 100 Other: # Voids 3 2 # Bowel Movements 0 1 Weight Source Bedscale Bedscale Bedscale Active Medications: Current Medications Acetaminophen (Tylenol) 650 mg PO Q4HR PRN PRN Reason: MILD PAIN OR TEMP >101 Stop: 05/13/18 21:08 Acetaminophen (Tylenol Extra Strength) 1,000 mg PO Q4HR PRN PRN Reason: MODERATE PAIN Stop: 05/13/18 21:08 Ascorbic Acid (Vitamin C) 500 mg PO DAILY [facility] Stop: 05/14/18 08:59 Last Admin: 03/19/18 10:20 Dose: 500 mg Aspirin (Aspirin Chewable) 81 mg PO DAILY [facility] Stop: 05/14/18 08:59 Last Admin: 03/19/18 10:19 Dose: 81 mg Ciprofloxacin (Cipro) 250 mg PO BID [facility] Stop: 03/22/18 16:59 Docusate Sodium (Colace) 100 mg PO DAILY [facility] Stop: 05/14/18 08:59 Last Admin: 03/19/18 10:21 Dose: 100 mg Donepezil HCl (Aricept) 10 mg PO DAILY [facility] Stop: 05/14/18 08:59 Last Admin: 03/19/18 10:18 Dose: 10 mg Ferrous Sulfate (Iron) 325 mg PO QDAC [facility] Stop: 05/14/18 07:29 Last Admin: 03/19/18 06:31 Dose: 325 mg Dextrose/Sodium Chloride (D5-0.9%Ns) 1,000 mls @ 60 mls/hr IV .[id number] [facility] Stop: 05/13/18 19:59 Last Admin: 03/18/18 17:51 Dose: 60 mls/hr Insulin Aspart (Novolog Insulin Sliding Scale) 0 units SUBQ ACHS [facility]; Protocol Stop: 05/13/18 20:59 Last Admin: 03/19/18 12:00 Dose: Not Given Insulin Detemir (Levemir Insulin) 15 units SUBQ BID [facility] Stop: 05/14/18 08:59 Last Admin: 03/19/18 11:11 Dose: Not Given Lactobacillus Rhamnosus (Culturelle 15b) 1 each PO DAILY [facility] Stop: 05/18/18 13:59 Levothyroxine Sodium (Synthroid) 0.088 mg PO QDAC [facility] Stop: 05/14/18 07:29 Last Admin: 03/19/18 06:31 Dose: 0.088 mg Magnesium Hydroxide (Milk Of Magnesia) 30 ml PO HS PRN PRN Reason: Constipation Stop: 05/13/18 21:08 Metformin HCl (Glucophage) 500 mg PO BIDWM [facility] Stop: 05/14/18 07:59 Last Admin: 03/19/18 10:25 Dose: 500 mg Miscellaneous (Probiotic Screen) 1 ea MC PRN PRN PRN Reason: PROTOCOL Stop: 05/18/18 12:38 Sodium Phosphate (Fleet Enema) 135 ml RC Q48H PRN PRN Reason: IF DULCOLAX INEFFECTIVE Stop: 05/13/18 21:08 Nutritional Asmnt/Malnutr-PDOC - Dietary Evaluation Malnutrition Findings (Please click <Entered> for more info): Nutritional Asmnt/Malnutrition Start: 03/15/18 16: 12 Text: Status: Complete Freq: Protocol: Document 03/15/18 16:12 CLARENCE (Rec: 03/15/18 16:37 CLARENCE [email or web address]) Nutritional Asmnt/Malnutrition Patient General Information Nutritional Screening High Risk Diagnosis UTI, weakness, FTT, lactic acidosis Pertinent Medical Hx/Surgical Hx HTN, DM, thyroid, arthritis, dementia Subjective Information Pt seen lying in bed taking blood work. Per PEWTER FINISHER, pt consumed 75% of breakfast this morning. Current Diet Order/ Nutrition Support pureed JASON CCHO 60gm Pertinent Medications Vit C, D5-0.9ns, colace, iron, novolog, levemir, synthroid, glucophage, piperacillin Pertinent Labs 03/15 Na 135, Cr 0.5, glucose 227, POC 195-218 Nutritional Hx/Data Height 1.7 m Height (Calculated Centimeters) 170.2 Current Weight (lbs) 69.853 kg Weight (Calculated Kilograms) 69.9 Weight (Calculated Grams) 71961.2 % [place] Body Weight 135 Body Mass Index (BMI) 24.1 Weight Status Approriate GI Symptoms GI Symptoms None Last BM 03/15 Difficult in: None Skin Integrity/Comment: Per wound care note Scar tissue present on Sacral area; Buttocks have dark discoloration from moisture Current %PO Good (75-100%) Estimated Nutritional Goals BEE in Kcals: Using Current wt Calories/Kcals/Kg 25-30 Kcals Calculated 5246-6433 Protein: Using Current wt Protein g/k Protein Calculated 70 Fluid: ml 1750-2100ml (1ml/kcal) Nutritional Problem 1. Problem Problem altered nutrition related labs Etiology hx of DM Signs/Symptoms: glucose 227, POC 195-218 Malnutrition Alert Is there a minimum of two criteria No selected? Query Text:Check all the applicable criteria. A minimum of two criteria are recommended for diagnosis of either severe or non-severe malnutrition. Malnutrition Related to Morbid Obesity Malnutrition related to morbid obesity No Intervention/Recommendation Comments 1. [facility] pure[facility] diet as ordered. 2. Monitor PO intake, wt, labs and skin integrity 3. F/U as moderate risk in 3-5 days, 03/18-03/20, PO check 03/17 Expected Outcomes/Goals Expected Outcomes/Goals 1. PO intake to meet at least 75% of nutritional needs. 2. Wt stability, skin to remain intact, labs to approach WNL.
--- NOTE | 2018-04-02 19:50 | Discharge Summary ---
DATE OF DISCHARGE: 03/19/2018 Discharged on 03/19/2018 to [place]. The patient is patient was admitted on 03/14/2018 with a history urinary tract infection, sepsis, poor oral intake and failure to thrive, severe weakness, history of hypertension, history of diabetes, and thyroid disorder. The patient was given IV antibiotics and patient had a GI workup. The patient was in stable condition on 03/19/2018 and discharged back to the longterm with continuation of IV antibiotics and I will follow the patient there. CONDITION AT THE TIME OF DISCHARGE: Stable. [facility]# [id number]
== END 2018-03-19 17:10 | DRG 871 ==
LOC: ER 14:07 → MSI 18:20
PROVIDERS: ADMIT Internal Medicine; ATTEND Internal Medicine
DX: A41.9 Sepsis, unspecified organism (principal); E41 Nutritional marasmus; N39.0 Urinary tract infection, site not specified; R62.7 Adult failure to thrive; I10 Essential (primary) hypertension; E11.9 Type 2 diabetes mellitus without complications; E03.9 Hypothyroidism, unspecified; M19.90 Unspecified osteoarthritis, unspecified site; F03.90 Unspecified dementia, unspecified severity, without behavioral disturbance, psychotic disturbance, mood disturbance, and anxiety; Z83.3 Family history of diabetes mellitus; Z82.49 Family history of ischemic heart disease and other diseases of the circulatory system; Z68.25 Body mass index [BMI] 25.0-25.9, adult; Z79.4 Long term (current) use of insulin
CPT/HCPCS: 36415-UA; 71045-TC; 80053-TC; 80061-TC; 81001-TC; 82150-TC; 82550-TC; 82948-90; 83036-90; 83605; 83690-TC; 84443-TC; 84484-TC; 85007-TC; 85025-TC; 85610-TC; 85730-TC; 87086-90; 93005; J0696; J1815; J2543; J7799; Z7610

== ENCOUNTER 2019-09-03 18:50 | Inpatient (IN) | payer MEDICARE, MEDICAID ==
[2019-09-04 02:43] VITALS: BP 133/70
[2019-09-04] MEDS ORDERED: Magnesium Hydroxide (MOM) 30 mL UDC PO PRN (03:06)
[2019-09-04] MEDS ORDERED: Maalox 30 mL Cup PO PRN (03:06)
[2019-09-04] MEDS: Levothyroxine 0.088 Mg Tab PO SCH (06:56)
[2019-09-04] MEDS ORDERED: GLUCAGON HCl 1 MG KIT IM PRN (07:02)
[2019-09-04] MEDS: INSULIN LISPRO SLIDING SCALE 100 UNITS/ML UNIT SUBQ SCH ×4 (07:06→21:31)
[2019-09-04] MEDS ORDERED: Fleet Enema 135 mL RC PRN (08:14)
[2019-09-04] MEDS: Multivitamin Tab PO SCH (09:18)
[2019-09-04] MEDS: Ferrous Sulfate 325 MG TAB PO SCH (09:18)
[2019-09-04] MEDS: Aspirin 81mg Chewable Tab PO SCH (09:18)
[2019-09-04] MEDS ORDERED: Probiotic Screen MC PRN (10:31)
--- NOTE | 2019-09-04 13:24 | History and Physical ---
History of Present Illness - HPI Chief Complaint: 89 y/o female was brought into ER for evaluation due to Increased Agitation and Confusion. HPI: 89 y/o female was admitted to [facility] for evaluation due to Increased Agitation and Confusion. Patient has history of Dementia, Hypertension, Diabetes, Thyroid disorder, Generalized weakness and Arthritis. Patient had an ER assessment and a complete workup was done. Patient was diagnosed with Acute Psychosis, History of Dementia, History of Hypertension, History of Diabetes, History of Thyroid disorder, History of Generalized weakness and History of Arthritis. Patient will have a Psych evaluation and I will follow, treat and monitor patient. Patient will continue current treatment plan as ordered. Vital Signs: Last Vital Signs Temp 98.4 F 09/04/19 06:32 Pulse 78 09/04/19 06:32 Resp 20 09/04/19 06:32 BP 102/53 09/04/19 06:32 Pulse Ox 99 09/04/19 06:32 Past Medical History Cardiovascular: Report: HTN, Other (Cardiomegaly.) Pulmonary: Report: No Pertinent Hx ECHOCARDIOGRAPHY RADIOLOGY TECHNOLOGIST: Report: Dementia GI: Report: No Pertinent Hx Psych: Report: Other (Dementia.) Musculoskeletal: Report: Weakness, Swelling, Other (Arthritis.) Rheumatologic: Report: No pertinent Hx Infectious Disease: Report: No Pertinent Hx Renal/: Report: No Pertinent Hx Endocrine: Report: Diabetes, Other (Thyroid disorder.) Dermatology: Report: No Pertinent Hx - Past Surgical History Past Surgical History: No pertinent Hx Family Medical History - Family Member Mother History Unknown: Yes Father History Unknown: Yes Social History Smoke: No Alcohol: None Drugs: None Lives: Jail Domestic Violence: Negative Health Maintenance Health Maintenance: Other (Please see chart.) - Medications Home Medications: Home Medication Medication Instructions Recorded Type Acetaminophen [Tylenol] 650 mg PO Q4HR PRN 02/05/18 History Ascorbic Acid [Vitamin C] 500 mg PO DAILY 02/05/18 History Aspirin [Aspirin Chewable] 81 mg PO DAILY 02/05/18 History Donepezil Hcl [Aricept] 10 mg PO DAILY 02/05/18 History Ferrous Sulfate 325 mg PO DAILY 02/05/18 History Fleet Enema 135 ml RC Q48H PRN 02/05/18 History Levothyroxine Sodium 88 mcg PO DAILY 02/05/18 History Magnesium Hydroxide [Milk of 30 ml PO HS PRN 02/05/18 History Magnesia] Metformin HCl [Fortamet] 500 mg PO BID 02/05/18 History Docusate Sodium [Colace] 100 mg PO DAILY 03/14/18 History Insulin Aspart Sliding Scale See Protocol SUBQ ACHS unit 03/19/18 Rx [NovoLOG INSULIN SLIDING SCALE] Amino Acids/Protein Hydrolys 30 ml PO TID 09/17/18 History [Pro-Stat Sugar Free 887 ml] Bisacodyl [Dulcolax 10 Mg Supp] 10 mg RC DAILY PRN 09/17/18 History Glucagon HCl 1 mg IM DAILY PRN 09/17/18 History Insulin Glargine,Hum.rec.anlog 15 unit SQ BIDAC 09/17/18 History [Basaglar Kwikpen U-100] Multivitamin w/ Minerals 1 tab PO DAILY 09/17/18 History [Theragran M] Nut.tx.gluc.intoler,Lac-Fr,Soy 237 ml PO TID 09/17/18 History [Ensure Glucerna Shake 237 ml] Other Medications: Please see Medication Reconciliation sheet. - Allergies Allergies/Adverse Reactions: Allergies Allergy/AdvReac Type Severity Reaction Status Date / Time No Known Allergies Allergy Verified 03/14/18 14:45 Review of Systems - Review of Systems Review of Systems: Patient is very confused and agitated, needs close monitoring. Constitutional: Report: No Significant Eyes: Report: No Significant ENT: Report: No Significant Respiratory: Report: No Significant Cardiovascular: Report: No Significant Gastrointestinal: Report: No Significant Genitourinary: Report: No Significant Musculoskeletal: Report: Other (Intermittent joint pain, Hx of Arthritis.) Skin: Report: No Significant Neurological: Report: Weakness, Confusion Physical Exam - Physical Exam HEENT: Report: Ears Nose Throat within normal limits Neck: Report: Within normal limits Cardiovascular Systems: Report: +s1/s2 noted, Regular, Rate and Rhythm Respiratory: Report: Breath Sounds are within normal limits Abdomen: Report: Non-tender to palpation Back: Report: Inspection of back is within normal limits. Extremities: Report: Non-tender to palpation. Skin: Report: Color of skin is within normal limits Neuro/Psych: Report: Disoriented to name time or place - Lab Results All Lab Results last 24 hours: Laboratory Results - last 24 hr 09/04/19 09/04/19 06:49 11:56 POC Glucose 173 H 200 H - Assessment Assessment: Acute Psychosis. History of Dementia. History of Hypertension. History of Diabetes. History of Thyroid disorder. History of Generalized weakness. History of Arthritis. - Plan Plan: Continuation of care. Monitor Vitals and Labs. Continue present meds as directed. Monitor vitals continue B/P meds as directed. Accu-check daily, Continue DM meds as directed. Monitor Diet/Nutritional support. Psych management as per Psych. Pain Management. Physical therapy/Occupational therapy prn. Safety precaution. Supportive care. Fall precaution, frequent nursing rounds, and as needed restraints to prevent fall. Continue collaborating with consulting specialists, case management and nursing team. Will Monitor patient and continue current treatment plan as ordered.
[2019-09-04] MEDS: Insulin Glargine 100 units/ml 10ml Vial SUBQ SCH (17:33)
--- NOTE | 2019-09-04 21:12 | Psychiatric Evaluation ---
DATE OF SERVICE: 09/03/2019 PSYCHIATRIC INITIAL EVALUATION AND MENTAL STATUS EXAMINATION CHIEF COMPLAINT: Agitation and aggressive behavior. HISTORY OF PRESENT ILLNESS: The patient is an 89-year-old female who was transferred from [facility] due to increased agitation. According to the staff in [place], the patient has been agitated and has not been cooperative with her treatment. She also has been resisting care and confused. The patient has also been having difficulty with her mood, and easily irritable and angry. After the patient was medically cleared in [facility], the patient was transferred to [facility]. Since the patient came to the hospital, she is relatively calm, but at the same time seems to be tired at this time. She did not move out of her bed. The patient also has been not talking despite of my trying to talk to her and all staff trying to talk to her. The patient also has been sleepy and seems to be sedated most of the time. PAST PSYCHIATRIC HISTORY: The patient has history of dementia. The patient is under conservatorship at this time because of her dementia and considered to be gravely disabled. PAST MEDICAL HISTORY: The patient has history of failure to thrive as well as diabetes mellitus, hypertension, hypothyroidism and anemia. SOCIAL HISTORY: The patient lives in [facility]. No known alcohol or drug use. ALLERGIES: No known allergies. MENTAL STATUS EXAMINATION: The patient appears her stated age. Anxious. Confused. Irritable moods and wants to be left alone, and stays in her bed. Seems to be preoccupied. The patient did not answer question regarding hallucinations or delusions, or regarding suicide or homicide. The patient is alert, but seems to be disoriented to time, place, person and situation. Impaired immediate, recent and remote memories, and she did not answer questions even regarding her date. Poor insight and poor judgment. ASSESSMENT: PRIMARY DIAGNOSIS: Dementia, severe, with behavioral disturbances. SECONDARY DIAGNOSIS: Rule out mood disorder. Rule out depressive mood disorder with psychosis. TREATMENT PLAN: We will monitor the patient's behavior closely. At this time, we will not start the patient on any psychotropic medications, and we will monitor her behavior for further evaluation and for further recommendations. ESTIMATED LENGTH OF STAY: 5 to 7 days. PATIENT'S STRENGTHS AND WEAKNESSES: The patient's strength is that she can return back to [facility] and she has supportive staff there. Weaknesses are poor impulse control and her poor memory and poor self-care. AFTER DISCHARGE PLAN: Outpatient treatment and followup will continue in [facility]. CRITERIA FOR DISCHARGE: We will stabilize psychotropic medications. The patient will have fair behavior. JOB# [id number]
[2019-09-05] MEDS: Insulin Glargine 100 units/ml 10ml Vial SUBQ SCH ×2 (06:29→17:42)
[2019-09-05] MEDS: INSULIN LISPRO SLIDING SCALE 100 UNITS/ML UNIT SUBQ SCH ×4 (06:31→20:44)
[2019-09-05] MEDS: Levothyroxine 0.088 Mg Tab PO SCH (06:53)
--- NOTE | 2019-09-05 07:12 | Progress Notes ---
DATE: 09/05/2019 SUBJECTIVE: Chart was reviewed and the patient interviewed. Also discussed the patient's condition with the staff and reviewed records and labs. The patient is still selectively mute and she still wants to be left alone. The patient stays in her bed all the time and hardly talking. She also gets agitated, especially when staff tried to help her with her ADLs. Also, the patient yesterday refused to take her insulin and the antibiotics. She also seems to be in a depressed mood. Otherwise, the patient took Aricept with no issues. During interview, the patient is restless and had flat affect. She also did not answer any of my questions in spite of my multiple trials. She also seems to be suspicious and preoccupied. ASSESSMENT: The patient still seems to be psychotic, but no major behavioral problems. TREATMENT PLAN: Continue to monitor behavior and condition closely. Also, continue adjusting psychotropic medications and work on behavioral modification. Also, considering her age, I will try not to give the patient any antipsychotic medications at this time and we will work on her behavior. JOB# [id number]
[2019-09-05] MEDS: Multivitamin Tab PO SCH (09:02)
[2019-09-05] MEDS: Ferrous Sulfate 325 MG TAB PO SCH (09:02)
[2019-09-05] MEDS: Aspirin 81mg Chewable Tab PO SCH (09:02)
--- NOTE | 2019-09-05 11:16 | Internal Medicine Prog Note ---
Internal Medicine Subjective - Subjective Service Date: 09/05/19 Patient seen and examined:: with staff Patient is:: awake Per staff patient has:: tolerating meds Internal Medicine Objective - Results Recent Labs: Laboratory Last Values POC Glucose 105 MG/DL (70 - 105) 09/05/19 06:16 - Physical Exam Vitals and I&O: Vital Signs Temp 97.6 F 09/05/19 06:45 Pulse 86 09/05/19 06:45 Resp 16 09/05/19 08:00 BP 102/64 09/05/19 06:45 Pulse Ox 97 09/05/19 06:45 Intake & Output 09/04/19 09/05/19 09/05/19 18:59 06:59 18:59 Intake Total 360 120 Balance 360 120 Intake: Oral 360 120 Other: # Voids 3 1 # Bowel Movements 0 0 Stool Characteristics Soft Soft Formed Formed Brown Brown Active Medications: Current Medications Acetaminophen (Tylenol) 650 mg PO Q4H PRN PRN Reason: Temperature above 101 Stop: 11/02/19 23:14 Last Admin: 09/04/19 09:26 Dose: 650 mg Al Hydrox/Mg Hydrox/Simethicone (Maalox) 30 ml PO Q4HR PRN PRN Reason: GI DISTRESS Stop: 11/03/19 03:05 Ascorbic Acid (Vitamin C) 500 mg PO DAILY [facility] Stop: 11/03/19 08:59 Last Admin: 09/05/19 09:02 Dose: 500 mg Aspirin (Aspirin Chewable) 81 mg PO DAILY [facility] Stop: 11/03/19 08:59 Last Admin: 09/05/19 09:02 Dose: 81 mg Bisacodyl (Dulcolax 10 Mg Supp) 10 mg RC DAILY PRN PRN Reason: Constipation Stop: 11/03/19 08:13 Cephalexin Monohydrate (Keflex) 500 mg PO QID [facility] Stop: 09/10/19 21:01 Last Admin: 09/05/19 09:02 Dose: 500 mg Dextrose (Glutose 40%) 18.75 gm PO PRN PRN PRN Reason: Blood Glucose less than 70 Stop: 11/03/19 07:01 Docusate Sodium (Colace) 100 mg PO DAILY [facility] Stop: 11/03/19 08:59 Last Admin: 09/05/19 09:02 Dose: 100 mg Donepezil HCl (Aricept) 10 mg PO DAILY [facility] Stop: 11/03/19 08:59 Last Admin: 09/05/19 09:02 Dose: 10 mg Ferrous Sulfate (Iron) 325 mg PO DAILY [facility] Stop: 11/03/19 08:59 Last Admin: 09/05/19 09:02 Dose: 325 mg Glucagon (Glucagen) 1 mg IM PRN PRN PRN Reason: Blood Glucose less than 70 Stop: 11/03/19 07:01 Insulin Glargine (Lantus Insulin) 15 units SUBQ Q12H [facility] Stop: 11/03/19 17:59 Last Admin: 09/05/19 06:29 Dose: Not Given Insulin Human Lispro (Humalog Insulin Sliding Scale) 0 units SUBQ ACHS [facility]; Protocol Stop: 11/03/19 07:29 Last Admin: 09/05/19 06:31 Dose: Not Given Lactobacillus Rhamnosus (Culturelle 15b) 1 each PO DAILY [facility] Stop: 11/04/19 10:59 Levothyroxine Sodium (Synthroid) 0.088 mg PO QDAC [facility] Stop: 11/03/19 07:29 Last Admin: 09/05/19 06:53 Dose: 0.088 mg Lorazepam (Ativan) 0.5 mg PO Q4H PRN; Protocol PRN Reason: anxiety/agitation Stop: 11/03/19 03:05 Magnesium Hydroxide (Milk Of Magnesia) 30 ml PO HS PRN PRN Reason: Constipation Metformin HCl (Glucophage) 500 mg PO BIDWM [facility] Stop: 11/03/19 17:59 Last Admin: 09/05/19 09:02 Dose: 500 mg Miscellaneous (Probiotic Screen) 1 ea MC PRN PRN PRN Reason: PROTOCOL Stop: 11/03/19 10:30 Multivitamins/Vitamin C (Theragran) 1 tab PO DAILY [facility] Stop: 11/03/19 08:59 Last Admin: 09/05/19 09:02 Dose: 1 tab Sodium Phosphate (Fleet Enema) 135 ml RC Q48H PRN PRN Reason: IF DULCOLAX INEFFECTIVE Stop: 11/03/19 08:13 Zolpidem Tartrate (Ambien) 5 mg PO HS PRN PRN Reason: Insomnia Stop: 11/03/19 20:59 General: alert HEENT: NC/AT, PERRLA Neck: Supple, No JVD Lungs: CTAB Cardiovascular: RRR, Normal S1, Normal S2 Abdomen: soft, non-tender, non-distended Neurological: alert Internal Medicine Assmt/Plan - Assessment Assessment: Acute Psychosis. History of Dementia. History of Hypertension. History of Diabetes. History of Thyroid disorder. History of Generalized weakness. History of Arthritis. - Plan Plan: Continuation of care. Monitor Vitals and Labs. Continue present meds as directed. Monitor vitals continue B/P meds as directed. Accu-check daily, Continue DM meds as directed. Monitor Diet/Nutritional support. Psych management as per Psych. Pain Management. Physical therapy/Occupational therapy prn. Safety precaution. Supportive care. Fall precaution, frequent nursing rounds, and as needed restraints to prevent fall. Continue collaborating with consulting specialists, case management and nursing team. Will Monitor patient and continue current treatment plan as ordered.
[2019-09-05] MEDS: Lactobacillus Rhamnosus GG 15 Billion CFU CAP.SPRINK PO SCH (12:52)
[2019-09-06] MEDS: Insulin Glargine 100 units/ml 10ml Vial SUBQ SCH ×2 (06:00→18:40)
[2019-09-06] MEDS: INSULIN LISPRO SLIDING SCALE 100 UNITS/ML UNIT SUBQ SCH ×4 (06:33→21:01)
[2019-09-06] MEDS: Levothyroxine 0.088 Mg Tab PO SCH (06:45)
[2019-09-06] MEDS: Ferrous Sulfate 325 MG TAB PO SCH (08:45)
[2019-09-06] MEDS: Aspirin 81mg Chewable Tab PO SCH (08:45)
[2019-09-06] MEDS: Lactobacillus Rhamnosus GG 15 Billion CFU CAP.SPRINK PO SCH (08:45)
[2019-09-06] MEDS: Multivitamin Tab PO SCH (08:46)
--- NOTE | 2019-09-06 10:35 | Internal Medicine Prog Note ---
Internal Medicine Subjective - Subjective Service Date: 09/06/19 Patient seen and examined:: with staff, chart reviewed Patient is:: awake, confused Patient Complaints of:: other (Very depressed.) Per staff patient has:: no adverse event, no episodes of fall, tolerating meds Internal Medicine Objective - Results Recent Labs: Laboratory Last Values POC Glucose 126 MG/DL (70 - 105) H 09/06/19 05:50 - Physical Exam Vitals and I&O: Vital Signs Temp 97.8 F 09/05/19 20:13 Pulse 65 09/05/19 20:13 Resp 16 09/06/19 08:00 BP 136/78 09/05/19 20:13 Pulse Ox 98 09/05/19 20:13 Intake & Output 09/05/19 09/06/19 09/06/19 18:59 06:59 18:59 Intake Total 120 Balance 120 Intake: Oral 120 Other: # Voids 1 # Bowel Movements 0 Stool Characteristics Soft Formed Brown Active Medications: Current Medications Acetaminophen (Tylenol) 650 mg PO Q4H PRN PRN Reason: Temperature above 101 Stop: 11/02/19 23:14 Last Admin: 09/04/19 09:26 Dose: 650 mg Al Hydrox/Mg Hydrox/Simethicone (Maalox) 30 ml PO Q4HR PRN PRN Reason: GI DISTRESS Stop: 11/03/19 03:05 Ascorbic Acid (Vitamin C) 500 mg PO DAILY [facility] Stop: 11/03/19 08:59 Last Admin: 09/06/19 08:45 Dose: 500 mg Aspirin (Aspirin Chewable) 81 mg PO DAILY [facility] Stop: 11/03/19 08:59 Last Admin: 09/06/19 08:45 Dose: 81 mg Bisacodyl (Dulcolax 10 Mg Supp) 10 mg RC DAILY PRN PRN Reason: Constipation Stop: 11/03/19 08:13 Cephalexin Monohydrate (Keflex) 500 mg PO QID [facility] Stop: 09/10/19 21:01 Last Admin: 09/06/19 08:46 Dose: 500 mg Dextrose (Glutose 40%) 18.75 gm PO PRN PRN PRN Reason: Blood Glucose less than 70 Stop: 11/03/19 07:01 Docusate Sodium (Colace) 100 mg PO DAILY [facility] Stop: 11/03/19 08:59 Last Admin: 09/06/19 08:46 Dose: 100 mg Donepezil HCl (Aricept) 10 mg PO DAILY [facility] Stop: 11/03/19 08:59 Last Admin: 09/06/19 08:45 Dose: 10 mg Ferrous Sulfate (Iron) 325 mg PO DAILY [facility] Stop: 11/03/19 08:59 Last Admin: 09/06/19 08:45 Dose: 325 mg Glucagon (Glucagen) 1 mg IM PRN PRN PRN Reason: Blood Glucose less than 70 Stop: 11/03/19 07:01 Insulin Glargine (Lantus Insulin) 15 units SUBQ Q12H [facility] Stop: 11/03/19 17:59 Last Admin: 09/06/19 06:00 Dose: 15 units Insulin Human Lispro (Humalog Insulin Sliding Scale) 0 units SUBQ ACHS [facility]; Protocol Stop: 11/03/19 07:29 Last Admin: 09/06/19 06:33 Dose: Not Given Lactobacillus Rhamnosus (Culturelle 15b) 1 each PO DAILY [facility] Stop: 11/04/19 10:59 Last Admin: 09/06/19 08:45 Dose: 1 each Levothyroxine Sodium (Synthroid) 0.088 mg PO QDAC [facility] Stop: 11/03/19 07:29 Last Admin: 09/06/19 06:45 Dose: 0.088 mg Lorazepam (Ativan) 0.5 mg PO Q4H PRN; Protocol PRN Reason: anxiety/agitation Stop: 11/03/19 03:05 Magnesium Hydroxide (Milk Of Magnesia) 30 ml PO HS PRN PRN Reason: Constipation Metformin HCl (Glucophage) 500 mg PO BIDWM [facility] Stop: 11/03/19 17:59 Last Admin: 09/06/19 08:45 Dose: 500 mg Miscellaneous (Probiotic Screen) 1 ea MC PRN PRN PRN Reason: PROTOCOL Stop: 11/03/19 10:30 Multivitamins/Vitamin C (Theragran) 1 tab PO DAILY [facility] Stop: 11/03/19 08:59 Last Admin: 09/06/19 08:46 Dose: 1 tab Sodium Phosphate (Fleet Enema) 135 ml RC Q48H PRN PRN Reason: IF DULCOLAX INEFFECTIVE Stop: 11/03/19 08:13 Zolpidem Tartrate (Ambien) 5 mg PO HS PRN PRN Reason: Insomnia Stop: 11/03/19 20:59 Physical Exam: Patient is very depressed, withdrawn, has been refusing to take medications, needs close monitoring. General: alert HEENT: NC/AT, PERRLA Neck: Supple, No JVD Lungs: CTAB Cardiovascular: RRR, Normal S1, Normal S2 Abdomen: soft, non-tender, non-distended Extremities: pain Neurological: alert Internal Medicine Assmt/Plan - Assessment Assessment: Acute Psychosis. History of Dementia. History of Hypertension. History of Diabetes. History of Thyroid disorder. History of Generalized weakness. History of Arthritis. - Plan Plan: Continuation of care. Monitor Vitals and Labs. Continue present meds as directed. Monitor vitals continue B/P meds as directed. Accu-check daily, Continue DM meds as directed. Monitor Diet/Nutritional support. Psych management as per Psych. Pain Management. Physical therapy/Occupational therapy prn. Safety precaution. Supportive care. Fall precaution, frequent nursing rounds, and as needed restraints to prevent fall. Continue collaborating with consulting specialists, case management and nursing team. Will Monitor patient and continue present care management. Nutritional Asmnt/Malnutr-PDOC - Dietary Evaluation Malnutrition Findings (Please click <Entered> for more info): please see orders.
--- NOTE | 2019-09-06 13:51 | Progress Notes ---
DATE: 09/06/2019 SUBJECTIVE: Chart was reviewed and the patient interviewed. Also discussed the patient's condition with the staff and reviewed records and labs. The patient's affect is brighter, but the patient still had episodes of agitation and irritability. The patient also still needs lots of redirections. The patient also is still having episodes of irritability and anger, especially was forgetful. Otherwise, the patient is compliant with taking her medications with no side effects of medications. ASSESSMENT: The patient is still anxious and is still in irritable mood. TREATMENT PLAN: Continue monitoring her behavior. Also because of her age, we will also consider continue Aricept renal dose and continue to follow up with behavioral modification. [facility]# [id number]
--- NOTE | 2019-09-06 13:53 | Internal Medicine Prog Note ---
Internal Medicine Subjective - Subjective Service Date: 09/06/19 Patient is:: awake, confused Patient Complaints of:: other (Very depressed.) Per staff patient has:: no adverse event, no episodes of fall, tolerating meds Internal Medicine Objective - Results Recent Labs: Laboratory Last Values POC Glucose 143 MG/DL (70 - 105) H 09/06/19 11:19 - Physical Exam Vitals and I&O: Vital Signs Temp 97.8 F 09/05/19 20:13 Pulse 65 09/05/19 20:13 Resp 16 09/06/19 08:00 BP 136/78 09/05/19 20:13 Pulse Ox 98 09/05/19 20:13 Intake & Output 09/05/19 09/06/19 09/06/19 18:59 06:59 18:59 Intake Total 120 Balance 120 Intake: Oral 120 Other: # Voids 1 # Bowel Movements 0 Stool Characteristics Soft Formed Brown Active Medications: Current Medications Acetaminophen (Tylenol) 650 mg PO Q4H PRN PRN Reason: Temperature above 101 Stop: 11/02/19 23:14 Last Admin: 09/04/19 09:26 Dose: 650 mg Al Hydrox/Mg Hydrox/Simethicone (Maalox) 30 ml PO Q4HR PRN PRN Reason: GI DISTRESS Stop: 11/03/19 03:05 Ascorbic Acid (Vitamin C) 500 mg PO DAILY [facility] Stop: 11/03/19 08:59 Last Admin: 09/06/19 08:45 Dose: 500 mg Aspirin (Aspirin Chewable) 81 mg PO DAILY [facility] Stop: 11/03/19 08:59 Last Admin: 09/06/19 08:45 Dose: 81 mg Bisacodyl (Dulcolax 10 Mg Supp) 10 mg RC DAILY PRN PRN Reason: Constipation Stop: 11/03/19 08:13 Cephalexin Monohydrate (Keflex) 500 mg PO QID [facility] Stop: 09/10/19 21:01 Last Admin: 09/06/19 08:46 Dose: 500 mg Dextrose (Glutose 40%) 18.75 gm PO PRN PRN PRN Reason: Blood Glucose less than 70 Stop: 11/03/19 07:01 Docusate Sodium (Colace) 100 mg PO DAILY [facility] Stop: 11/03/19 08:59 Last Admin: 09/06/19 08:46 Dose: 100 mg Donepezil HCl (Aricept) 10 mg PO DAILY [facility] Stop: 11/03/19 08:59 Last Admin: 09/06/19 08:45 Dose: 10 mg Ferrous Sulfate (Iron) 325 mg PO DAILY [facility] Stop: 11/03/19 08:59 Last Admin: 09/06/19 08:45 Dose: 325 mg Glucagon (Glucagen) 1 mg IM PRN PRN PRN Reason: Blood Glucose less than 70 Stop: 11/03/19 07:01 Insulin Glargine (Lantus Insulin) 15 units SUBQ Q12H [facility] Stop: 11/03/19 17:59 Last Admin: 09/06/19 06:00 Dose: 15 units Insulin Human Lispro (Humalog Insulin Sliding Scale) 0 units SUBQ ACHS [facility]; Protocol Stop: 11/03/19 07:29 Last Admin: 09/06/19 11:27 Dose: Not Given Lactobacillus Rhamnosus (Culturelle 15b) 1 each PO DAILY [facility] Stop: 11/04/19 10:59 Last Admin: 09/06/19 08:45 Dose: 1 each Levothyroxine Sodium (Synthroid) 0.088 mg PO QDAC [facility] Stop: 11/03/19 07:29 Last Admin: 09/06/19 06:45 Dose: 0.088 mg Lorazepam (Ativan) 0.5 mg PO Q4H PRN; Protocol PRN Reason: anxiety/agitation Stop: 11/03/19 03:05 Magnesium Hydroxide (Milk Of Magnesia) 30 ml PO HS PRN PRN Reason: Constipation Metformin HCl (Glucophage) 500 mg PO BIDWM [facility] Stop: 11/03/19 17:59 Last Admin: 09/06/19 08:45 Dose: 500 mg Miscellaneous (Probiotic Screen) 1 ea MC PRN PRN PRN Reason: PROTOCOL Stop: 11/03/19 10:30 Multivitamins/Vitamin C (Theragran) 1 tab PO DAILY [facility] Stop: 11/03/19 08:59 Last Admin: 09/06/19 08:46 Dose: 1 tab Sodium Phosphate (Fleet Enema) 135 ml RC Q48H PRN PRN Reason: IF DULCOLAX INEFFECTIVE Stop: 11/03/19 08:13 Zolpidem Tartrate (Ambien) 5 mg PO HS PRN PRN Reason: Insomnia Stop: 11/03/19 20:59 General: alert HEENT: NC/AT, PERRLA Neck: Supple, No JVD Lungs: CTAB Cardiovascular: RRR, Normal S1, Normal S2 Abdomen: soft, non-tender, non-distended Extremities: pain Neurological: alert Internal Medicine Assmt/Plan - Assessment Assessment: Acute Psychosis. History of Dementia. History of Hypertension. History of Diabetes. History of Thyroid disorder. History of Generalized weakness. History of Arthritis. - Plan Plan: Continuation of care. Monitor Vitals and Labs. Continue present meds as directed. Monitor vitals continue B/P meds as directed. Accu-check daily, Continue DM meds as directed. Monitor Diet/Nutritional support. Psych management as per Psych. Pain Management. Physical therapy/Occupational therapy prn. Safety precaution. Supportive care. Fall precaution, frequent nursing rounds, and as needed restraints to prevent fall. Continue collaborating with consulting specialists, case management and nursing team. Will Monitor patient and continue current treatment plan as ordered.
[2019-09-07] MEDS: Insulin Glargine 100 units/ml 10ml Vial SUBQ SCH (06:29)
[2019-09-07] MEDS: Levothyroxine 0.088 Mg Tab PO SCH (06:35)
[2019-09-07] MEDS: INSULIN LISPRO SLIDING SCALE 100 UNITS/ML UNIT SUBQ SCH ×4 (07:03→20:53)
--- NOTE | 2019-09-07 08:48 | Progress Notes ---
DATE: 09/07/2019 SUBJECTIVE: The patient was seen in room. The patient appears to be guarded and irritable, very anxious, poor impulse control and needs a lot of redirection. Otherwise, the patient is in no acute distress. OBJECTIVE: VITAL SIGNS: Temperature 98.1, heart rate 70, blood pressure 133/60, respirations of 20, 97% on room air. HEENT: Head is atraumatic and normocephalic. Eyes: Bilateral conjunctivae are clear. Bilateral pupils equally round and reactive. NECK: Supple. No JVD. CARDIOVASCULAR: S1 and S2, without murmur. PULMONARY: Clear to auscultation. GASTROINTESTINAL: Soft and nontender without guarding. Positive bowel sounds. MUSCULOSKELETAL: No clubbing. No cyanosis noted. ASSESSMENT: 1. Dementia. 2. Hypertension. 3. Diabetes. 4. Anemia. 5. Hypothyroidism. PLAN: We will continue to keep the patient to inpatient Psychiatric Unit. We will follow up with a psychiatrist to monitor the patient's condition and behavior. We will put the patient on fall precautions. Treatment plans were discussed with the patient's nurse. Treatment plans were discussed with Dr. Sarkar. JOB# [id number]
[2019-09-07] MEDS: Multivitamin Tab PO SCH ×2 (08:55→09:00)
[2019-09-07] MEDS: Lactobacillus Rhamnosus GG 15 Billion CFU CAP.SPRINK PO SCH ×2 (08:55→09:00)
[2019-09-07] MEDS: Ferrous Sulfate 325 MG TAB PO SCH ×2 (08:55→09:00)
[2019-09-07] MEDS: Aspirin 81mg Chewable Tab PO SCH ×2 (08:55→09:00)
--- NOTE | 2019-09-08 06:40 | Psych Progress Note ---
Psych Progress Note - Intro Date of Progress Note: 09/07/19 - Assessment Assessment: Patient interviewed, case discussed with staff, chart and records were reviewed. Patient is with reducing behaviors. She continues with moments of impulsive anger but now with less agitation. Poor historian, needs redirection , not willing to engage much with this provider. - Vitals, I&O Vitals: Vital Signs - 24 hr 09/07/19 09/07/19 09/07/19 08:00 20:00 20:55 Temp 98.7 F HR 76 RR 16 20 20 BP 98/52 O2 Sat % 99 09/08/19 06:21 Temp 98.7 F HR 80 RR 20 BP 108/50 O2 Sat % 91 - Objective Psych General Appearance: Report: Clean Psych Behavior: Report: Uncooperative Psych Speech: Report: Mumbled Psych Mood: Report: Irritable Psych Affect: Report: Labile Psych Thought Process: Report: Loose Associations Psych Cognition: Report: Confused Psych Insight: Report: Impaired Psych Judgement: Report: Impaired - Plan Plan: continue current treatment plan, continue to observe for behaviors and side effects. - Review of Relevant Data Review of Relevant Data: I have reviewed the following items and time saturnino (where applicable) has been applied. - Medications Current Medications: Current Medications Acetaminophen (Tylenol) 650 mg PO Q4H PRN PRN Reason: Temperature above 101 Stop: 11/02/19 23:14 Last Admin: 09/04/19 09:26 Dose: 650 mg Al Hydrox/Mg Hydrox/Simethicone (Maalox) 30 ml PO Q4HR PRN PRN Reason: GI DISTRESS Stop: 11/03/19 03:05 Ascorbic Acid (Vitamin C) 500 mg PO DAILY [facility] Stop: 11/03/19 08:59 Last Admin: 09/07/19 09:00 Dose: Not Given Aspirin (Aspirin Chewable) 81 mg PO DAILY [facility] Stop: 11/03/19 08:59 Last Admin: 09/07/19 09:00 Dose: Not Given Bisacodyl (Dulcolax 10 Mg Supp) 10 mg RC DAILY PRN PRN Reason: Constipation Stop: 11/03/19 08:13 Cephalexin Monohydrate (Keflex) 500 mg PO QID [facility] Stop: 09/10/19 21:01 Last Admin: 09/07/19 20:52 Dose: 500 mg Dextrose (Glutose 40%) 18.75 gm PO PRN PRN PRN Reason: Blood Glucose less than 70 Stop: 11/03/19 07:01 Docusate Sodium (Colace) 100 mg PO DAILY [facility] Stop: 11/03/19 08:59 Last Admin: 09/07/19 09:00 Dose: Not Given Donepezil HCl (Aricept) 10 mg PO DAILY [facility] Stop: 11/03/19 08:59 Last Admin: 09/07/19 09:00 Dose: Not Given Ferrous Sulfate (Iron) 325 mg PO DAILY [facility] Stop: 11/03/19 08:59 Last Admin: 09/07/19 09:00 Dose: Not Given Glucagon (Glucagen) 1 mg IM PRN PRN PRN Reason: Blood Glucose less than 70 Stop: 11/03/19 07:01 Insulin Glargine (Lantus Insulin) 15 units SUBQ Q12H [facility] Stop: 11/03/19 17:59 Last Admin: 09/07/19 06:29 Dose: 15 units Insulin Human Lispro (Humalog Insulin Sliding Scale) 0 units SUBQ ACHS [facility]; Protocol Stop: 11/03/19 07:29 Last Admin: 09/07/19 20:53 Dose: 2 units Lactobacillus Rhamnosus (Culturelle 15b) 1 each PO DAILY [facility] Stop: 11/04/19 10:59 Last Admin: 09/07/19 09:00 Dose: Not Given Levothyroxine Sodium (Synthroid) 0.088 mg PO QDAC [facility] Stop: 11/03/19 07:29 Last Admin: 09/07/19 06:35 Dose: Not Given Lorazepam (Ativan) 0.5 mg PO Q4H PRN; Protocol PRN Reason: anxiety/agitation Stop: 11/03/19 03:05 Magnesium Hydroxide (Milk Of Magnesia) 30 ml PO HS PRN PRN Reason: Constipation Metformin HCl (Glucophage) 500 mg PO BIDWM [facility] Stop: 11/03/19 17:59 Last Admin: 09/07/19 08:06 Dose: Not Given Miscellaneous (Probiotic Screen) 1 ea MC PRN PRN PRN Reason: PROTOCOL Stop: 11/03/19 10:30 Multivitamins/Vitamin C (Theragran) 1 tab PO DAILY [facility] Stop: 11/03/19 08:59 Last Admin: 09/07/19 09:00 Dose: Not Given Sodium Phosphate (Fleet Enema) 135 ml RC Q48H PRN PRN Reason: IF DULCOLAX INEFFECTIVE Stop: 11/03/19 08:13 Zolpidem Tartrate (Ambien) 5 mg PO HS PRN PRN Reason: Insomnia Stop: 11/03/19 20:59
[2019-09-08] MEDS: INSULIN LISPRO SLIDING SCALE 100 UNITS/ML UNIT SUBQ SCH (06:46)
[2019-09-08] MEDS: Insulin Glargine 100 units/ml 10ml Vial SUBQ SCH (06:47)
[2019-09-08] MEDS: Levothyroxine 0.088 Mg Tab PO SCH (06:47)
--- NOTE | 2019-09-09 08:26 | Discharge Summary ---
DATE OF DISCHARGE: 09/08/2019 AGE: 89. SEX: Female. PHYSICIAN: Dr. Eldridge. PRIMARY DIAGNOSIS: Depressive mood disorder, severe, unspecified. SECONDARY DIAGNOSIS: Dementia, severe, with behavior disturbances. REASON FOR HOSPITALIZATION: The patient was admitted to the hospital from [facility] because of increased confusion and depression. HOSPITAL COURSE: The patient was admitted to the hospital. The patient was refusing to eat or drink or take medications. The patient became dehydrated. She also had failure to thrive. Dr. Sarkar was concerned about the patient's condition and the patient was discharged from the hospital and ambulance took her to [facility] where she was readmitted because of failure to thrive. PHYSICAL EXAMINATION: The patient was monitored by Dr. Sarkar. AFTER DISCHARGE: Discharge plans as per [facility]. EXPECTED OUTCOME AFTER DISCHARGE: As per [facility]. JOB# [id number]
== END 2019-09-08 06:50 | disposition short-term general hospital (02) | DRG 884 ==
LOC: GERO 23:15
PROVIDERS: ADMIT Psychiatry & Neurology Psychiatry; ATTEND Psychiatry & Neurology Psychiatry
DX: F03.91 Unspecified dementia, unspecified severity, with behavioral disturbance (principal); F32.2 Major depressive disorder, single episode, severe without psychotic features; I10 Essential (primary) hypertension; E03.9 Hypothyroidism, unspecified; E11.9 Type 2 diabetes mellitus without complications; D64.9 Anemia, unspecified; R62.7 Adult failure to thrive; F03.90 Unspecified dementia, unspecified severity, without behavioral disturbance, psychotic disturbance, mood disturbance, and anxiety; M19.90 Unspecified osteoarthritis, unspecified site; R53.1 Weakness; Z79.899 Other long term (current) drug therapy; Z79.84 Long term (current) use of oral hypoglycemic drugs; Z68.22 Body mass index [BMI] 22.0-22.9, adult
CPT/HCPCS: 82948-90; 83036-90; J1610; J1815; Z7610